=== PATIENT | male | born 1950 | race African-American/Black ===

== ENCOUNTER 2018-07-21 19:54 | Inpatient (IN) ==
[2018-07-21] MEDS ORDERED: Morphine Inj 4 MG/ML Vial IV.PUSH ONE (20:05)
[2018-07-21] MEDS ORDERED: Sod Chloride 0.9% Inj 1,000 ML IV.SIG ONE (20:05)
[2018-07-21 20:46] LABS: Baso % (Auto) 0.5 % (0.0-2.0); Eos # (Auto) 0.1 th/mm3 (0.0-0.4); Eos % (Auto) 1.9 % (0.0-4.0); Hematocrit 43.9 % (39.0-51.0); Hemoglobin 14.6 gm/dL (13.0-17.0); Lymph # (Auto) 1.3 th/mm3 (1.0-4.8); Lymph % (Auto) 21.2 % (9.0-44.0); Mean Corpuscular HGB Conc 33.1 % (32.0-36.0); Mean Corpuscular Hemoglobin 27.9 pg (27.0-34.0); Mean Corpuscular Volume 84.2 fL (80.0-100.0); Mean Platelet Volume 8.2 fL (7.0-11.0); Mono # (Auto) 0.6 th/mm3 (0.0-0.9); Mono % (Auto) 9.6 % (0.0-8.0); Neut # (Auto) 4.2 th/mm3 (1.8-7.7); Neut % (Auto) 66.8 % (16.0-70.0); Platelet Count 371 th/mm3 (150-450); Red Blood Count 5.22 mil/mm3 (4.50-5.90); Red Cell Distribution Width 16.9 % (11.6-17.2); White Blood Count 6.2 th/mm3 (4.0-11.0)
[2018-07-21 21:04] LABS: Activated Partial Thrombo Time 27.1 sec (24.3-30.1); Prothrombin Time 10.2 sec (9.8-11.6)
[2018-07-21 21:15] LABS: Alanine Aminotransferase 19 U/L (12-78); Albumin 4.3 g/dL (3.4-5.0); Anion Gap 15 meq/L (5-15); Aspartate Aminotransferase 16 U/L (15-37); Blood Urea Nitrogen 63 mg/dL (7-18); Calcium 9.2 mg/dL (8.5-10.1); Carbon Dioxide 17.6 meq/L (21.0-32.0); Chloride 107 meq/L (98-107); Glomerular Filtration Rate 7 mL/min (>89); Glucose,Random 87 mg/dL (74-106); Lipase 111 U/L (73-393); Potassium 4.8 meq/L (3.5-5.1); Sodium 140 meq/L (136-145)
[2018-07-21 21:19] LABS: Alkaline Phosphatase 80 U/L (45-117); Total Protein 8.9 g/dL (6.4-8.2); Troponin I 0.03 ng/mL (0.02-0.05)
--- NOTE | 2018-07-21 21:53 | CT ---
EXAM DATE: 07/21/2018 9:42 PM EDT AGE/SEX: 68 years / Male INDICATIONS: Abdomen and back pain past 3 weeks. CLINICAL DATA: This is the patient's initial encounter. Patient reports that signs and symptoms have been present for 3 weeks and indicates a pain score of 5/10. MEDICAL/SURGICAL HISTORY: Hypertension. Gastroesophageal reflux disease. Renal calculi. None. RADIATION DOSE: 9.01 CTDI (mGy) COMPARISON: [facility] [place]/O CONTRAST, 05/15/2014. . TECHNIQUE: Multiple contiguous axial images were obtained through the abdomen. Images were obtained using multiple row detector helical technique. Using automated exposure control and adjustment of the mA and/or kV according to patient size, radiation dose was kept as low as reasonably achievable to o btain optimal diagnostic quality images. DICOM format image data is available electronically for rev iew and comparison. FINDINGS: Lower Lungs: The visualized lower lungs are clear. Liver: The liver has a homogeneous density without space-occupying lesion. There is no dilation of th e biliary tree. Spleen: Homogeneous density without enlargement. Pancreas: Unremarkable without mass or calcification. Kidneys: Normal in size and shape. No evidence of mass or hydronephrosis. Adrenal Glands: Unremarkable. Aorta: Diffuse aortic calcification. Diameter within normal limits. Bowel/Mesentery: No evidence of bowel dilatation. No free air or free fluid. Appendix not identified . Abdominal Wall: Intact. Retroperitoneum: No evidence of adenopathy in the retrocrural, para-aortic, or deep pelvic regions. Bladder: Contours are smooth. Reproductive Organs: No abnormal masses or calcifications seen. Inguinal: The inguinal region is unremarkable without evidence of adenopathy. Bony Structures: Prominent degenerative findings of the lumbar spine. CONCLUSION: No acute findings in the abdomen and pelvis. Electronically signed by: Danny Moreira MD 07/21/2018 9:52 PM EDT
--- NOTE | 2018-07-21 22:21 | ED ---
HPI General Chief complaint: Abdominal Pain Stated complaint: ABD Pain Time Seen by Provider: 07/21/18 20:05 Source: patient Mode of arrival: EMS Limitations: no limitations History of Present Illness HPI narrative: Patient is a 68-year-old male who comes in complaining of abdominal pain with nausea and vomiting. He says the pain is in the epigastric area. He says this is been going on for 3 weeks. He says he saw his doctor who ordered blood work and was concerned about his kidney function. He says that nothing has helped his pain. He has not been able to keep anything down and reports 25 pound weight loss. He denies fever chills. He denies chest pain or shortness of breath. Severity is mild to moderate. Related Data Home Medications Medication Instructions Recorded Confirmed amlodipine 10 mg PO DAILY 07/21/18 07/21/18 hydrocodone-acetaminophen [[place]] 1 tab PO Q4H PRN 07/21/18 07/21/18 Allergies Allergy/AdvReac Type Severity Reaction Status Date / Time penicillin G Allergy Severe SOB, RASH Verified 07/21/18 20:00 clindamycin Allergy Intermediate itching Verified 07/21/18 20:00 rash Review of Systems ROS: all other systems reviewed are negative Constitutional Denies chills and Denies fever(s) ENT Denies dizziness Cardiovascular Denies chest pain and Denies dyspnea Respiratory Denies cough Gastrointestinal Reports abdominal pain, Reports nausea and Reports vomiting Musculoskeletal Denies myalgias and Denies arthralgias Integumentary/Breasts Denies rash and Denies sores Neurologic Denies focal weakness and Denies numbness [facility] Medical History Medical History Arthritis (Acute) Chest pain (Acute) GERD (gastroesophageal reflux disease) (Acute) Hypertension (Acute) Kidney stones (Acute) Surgical History Surgical History H/O knee surgery (Acute) H/O shoulder surgery (Acute) Social History Social History Substance History: No History of Abuse Second Hand Smoke Exposure: Yes Smoking Status: Current some day smoker Tobacco Type: Cigarettes How Often Do You Have a Drink Containing Alcohol: 2 to 4 times a month Recent Travel in [facility] within the Last 8 Weeks: No Recent Out of Country Travel within the Last 8 Weeks: No Immunization History Tetanus Immunization: <5 Years Hx Influenza Vaccine This Season: Yes Exam Narrative Exam Narrative: GENERAL: Awake and alert, in no acute distress. SKIN: Focused skin assessment warm/dry. No wounds or signs of infection. HEAD: Atraumatic. Normocephalic. EYES: Pupils equal and round. No scleral icterus. ENT: Mucous membranes pink and moist. NECK: Trachea midline. No JVD. CARDIOVASCULAR: Regular rate and rhythm. No murmur appreciated. RESPIRATORY: No accessory muscle use. Clear to auscultation. Breath sounds equal bilaterally. GASTROINTESTINAL: Abdomen soft, nondistended. Diffuse tenderness, worse in the epigastric area. No rebound or guarding. MUSCULOSKELETAL: No obvious deformities. No clubbing. No cyanosis. No edema. NEUROLOGICAL: Awake and alert. No obvious cranial nerve deficits. Motor grossly within normal limits. Normal speech. PSYCHIATRIC: Appropriate mood and affect; insight and judgment normal. Course Initial Documented Vital Signs Temperature 98.0 F 07/21/18 20:01 Pulse Rate 90 07/21/18 20:01 Respiratory Rate 18 07/21/18 20:01 Blood Pressure 100/61 07/21/18 20:01 Pulse Oximetry 96 07/21/18 20:01 Last Documented Vital Signs Temperature 98.0 F 07/21/18 20:01 Pulse Rate 89 07/21/18 20:06 Respiratory Rate 20 07/21/18 20:40 Blood Pressure 102/62 07/21/18 20:06 Pulse Oximetry 98 07/21/18 20:06 Medical Decision Making [facility] Narrative Medical decision making narrative: Patient is a 68 year old male who comes in complaining of abdominal pain with nausea and vomiting. Exam shows tenderness to epigastric area. IV established, labs sent. Labs show Cr of 9.26. Patient given IVF, Zofran. CT abd/pelvis shows no acute abnormalities. Patient to be admitted for ARF. Medical Screen Exam Complete: Yes Emergency Medical Condition: Yes Differential Diagnosis Differential Diagnosis: Pancreatitis vs GERD vs dehydration Medical Records Medical records reviewed: Yes I reviewed the patient's medical records. Lab Data Lab results reviewed: Yes I reviewed the patient's lab results. Result diagrams: 07/21/18 20:15 07/21/18 20:15 Lab Results 07/21/18 07/21/18 07/21/18 Range/Units 20:15 20:15 20:15 WBC 6.2 (4.0-11.0) th/mm3 RBC 5.22 (4.50-5.90) mil/mm3 Hgb 14.6 (13.0-17.0) gm/dL Hct 43.9 (39.0-51.0) % MCV 84.2 (80.0-100.0) fL MCH 27.9 (27.0-34.0) pg MCHC 33.1 (32.0-36.0) % RDW 16.9 (11.6-17.2) % Plt Count 371 (150-450) th/mm3 MPV 8.2 (7.0-11.0) fL Neut % (Auto) 66.8 (16.0-70.0) % Lymph % (Auto) 21.2 (9.0-44.0) % Graham % (Auto) 9.6 H (0.0-8.0) % Eos % (Auto) 1.9 (0.0-4.0) % Baso % (Auto) 0.5 (0.0-2.0) % Neut # (Auto) 4.2 (1.8-7.7) th/mm3 Lymph # (Auto) 1.3 (1.0-4.8) th/mm3 Graham # (Auto) 0.6 (0.0-0.9) th/mm3 Eos # (Auto) 0.1 (0.0-0.4) th/mm3 Baso # (Auto) 0.0 (0.0-0.2) th/mm3 WBC Differential . Differential Comment Auto diff final PT 10.2 (9.8-11.6) sec INR 1.0 Ratio APTT 27.1 (24.3-30.1) sec Sodium 140 (136-145) meq/L Potassium 4.8 (3.5-5.1) meq/L Chloride 107 (98-107) meq/L Carbon Dioxide 17.6 L (21.0-32.0) meq/L Anion Gap 15 (5-15) meq/L BUN 63 H (7-18) mg/dL Creatinine 9.26 H (0.60-1.30) mg/dL Estimated GFR 7 L (>89) mL/min Random Glucose 87 (74-106) mg/dL Calcium 9.2 (8.5-10.1) mg/dL Total Bilirubin 0.4 (0.2-1.0) mg/dL AST 16 (15-37) U/L ALT 19 (12-78) U/L Alkaline Phosphatase 80 (45-117) U/L Troponin I 0.03 (0.02-0.05) ng/mL Total Protein 8.9 H (6.4-8.2) g/dL Albumin 4.3 (3.4-5.0) g/dL Lipase 111 (73-393) U/L Imaging Data Radiologist's impression: Abdomen/Pelvis CT 07/21/18 21:30 CONCLUSION: No acute findings in the abdomen and pelvis. ECG shows NSR at 86, no ST elevation or depression, normal intervals. Discharge Plan Discharge Disposition Patient Disposition: 30 Still Patient Discharge Condition Condition: Stable Discharge Details Diagnosis: Acute renal failure, Vomiting Physicians Team ED Provider: Lyly Marin Primary Care Provider: Primary Care Cyn Lombardi Attending Provider: Tomeka Hand Other Providers: Violetta Wan Discharge Interventions Interventions: Vital Signs Last Done: 07/21/18 20:06 Status ED Status: Admitted Patient
[2018-07-21] MEDS ORDERED: Bisacodyl 10 MG Supp RECTAL PRN (22:25)
[2018-07-21] MEDS ORDERED: Acetaminophen 325 MG Tablet PO PRN (22:25)
--- NOTE | 2018-07-21 22:28 | P.HPIM ---
History of Present Illness Primary Care Physician: No Primary Care Physician History of Present Illness: This is a 68-year-old male with a PMH of HTN, GERD and Arthritis who presents to ER with complaints of abdominal pain, nausea, vomiting and diarrhea x3 wks. Denies fever or chills, no sick contacts, no recent travel. States symptoms have been ongoing x3wks, unable to take PO due to nausea/vomiting. +weight loss of approx 20lbs. No previous h/o similar symptoms. Reports drinking " lots of water", however minimal urine output. On arrival, BP 100/61, HR 90, O2 sat 96% on RA, Afebrile. CBC unremarkable. INR 1.0. Creatinine 9.26, previously 1.47 on 06/04/2014. Troponin 0.03. CT Abdomen/Pelvis with no acute findings. Pt denies previous h/o kidney disease - Diagnosis (1) SANGITA (acute kidney injury) (2) Abdominal pain (3) Nausea, vomiting and diarrhea Review of Systems PAST FAMILY HISTORY: Reviewed. No h/o DM or CAD All other systems reviewed negative except as stated in HPI PMFSH - History History Provided By: Patient - Medical History Medical History: Medical History (Last Reviewed 07/21/18 @ 22:53 by Lyly Marin MD) Arthritis Chest pain GERD (gastroesophageal reflux disease) Hypertension Kidney stones - Surgical History Surgical History: Surgical History (Last Reviewed 07/21/18 @ 22:53 by Lyly Marin MD) H/O knee surgery H/O shoulder surgery - Tobacco History Second Hand Smoke Exposure: Yes Tobacco Use In Past 30 Days: Yes Smoking Status: Current some day smoker Tobacco Type: Cigarettes - Alcohol History How Often Do You Have a Drink Containing Alcohol: 2 to 4 times a month - Substance Use History Substance History: No History of Abuse - Travel History Recent Travel in the [place] Within the Last 8 Weeks: No Recent Travel Out of the Country Within the Last 8 Weeks: No - Immunization History Tetanus Immunization: <5 Years Hx Influenza Vaccine This Season: Yes Medications and Allergies Active Medications: Active Medications Acetaminophen (Tylenol) 650 mg PO Q4H PRN PRN Reason: Temp > 100.4 Al Hydroxide/Mg Hydroxide (Milk Of Magnesia Liq) 30 ml PO Q12H PRN PRN Reason: Mild Constipation Bisacodyl (Dulcolax Supp) 10 mg RECTAL DAILY PRN PRN Reason: SEVERE CONSITIPATION Sodium Chloride (Ns Inj) 1,000 mls @ 100 mls/hr IV.CONT .Q10H LEO Lactulose (Lactulose Liq) 30 ml PO DAILY PRN PRN Reason: SEVERE CONSITIPATION Morphine Sulfate (Morphine Inj) 2 mg IV.PUSH Q4H PRN PRN Reason: PAIN 6-10 Ondansetron HCl (Zofran Inj) 4 mg IV.PUSH Q6H PRN PRN Reason: NAUSEA OR VOMITING Senna/Docusate Sodium (Yumi-Colace) 1 tab PO BID LEO Sennosides (Senokot) 17.2 mg PO Q12H PRN PRN Reason: Moderate Constipation Sodium Chloride (Ns Flush) 2 ml IV.FLUSH PRN PRN PRN Reason: FLUSH AFTER USING IV ACCESS Allergies Allergy/AdvReac Type Severity Reaction Status Date / Time penicillin G Allergy Severe SOB, RASH Verified 07/21/18 20:00 clindamycin Allergy Intermediate itching Verified 07/21/18 20:00 rash Home Medications Medication Instructions Recorded Confirmed Type amlodipine 10 mg PO DAILY 07/21/18 07/21/18 History hydrocodone-acetaminophen [[place]] 1 tab PO Q4H PRN 07/21/18 07/21/18 History Exam Vital signs: Vital Signs 07/21/18 20:01 07/21/18 20:06 07/21/18 20:40 Temperature 98.0 F Pulse Rate 90 89 Respiratory Rate 18 20 20 Blood Pressure 100/61 102/62 Pulse Oximetry 96 98 Intake & Output 07/21/18 07/21/18 07/22/18 06:59 18:59 06:59 Intake Total 1000 / 1000 Balance 1000 / 1000 Weight 54.431 kg Intake: IV 1000 / 1000 NS Inj 1,000 ML @ Wide Open IV. 1000 / 1000 SIG BOLUS ONE Rx#:[id number] Narrative: PE: GENERAL: Middle-aged thin, frail black male in no acute distress. SKIN: Focused skin assessment warm and dry. HEENT: PERRLA, EOMI. No scleral icterus or conjunctival pallor. No lid lag or facial droop. CARDIOVASCULAR: Regular rate and rhythm. No obvious murmurs to auscultation. No chest tenderness to palpation. RESPIRATORY: No obvious rhonchi or wheezing. Clear to auscultation. Breath sounds equal bilaterally. GASTROINTESTINAL: Abdomen soft, non-tender, nondistended. BS normal. MUSCULOSKELETAL: Extremities without clubbing, cyanosis, or edema. No obvious deformities. NEUROLOGICAL: Awake, alert and oriented x4. No focal neurologic deficits. Moving both upper and lower extremities spontaneously. PSYCHIATRIC: Appropriate mood and affect. Insight and judgment normal. Results - Labs CBC & Chem 7: 07/21/18 20:15 07/21/18 20:15 Labs: Short CBC 07/21/18 Range/Units 20:15 WBC 6.2 (4.0-11.0) th/mm3 Hgb 14.6 (13.0-17.0) gm/dL Hct 43.9 (39.0-51.0) % Plt Count 371 (150-450) th/mm3 BMP 07/21/18 20:15 Sodium 140 Potassium 4.8 Chloride 107 Carbon Dioxide 17.6 L BUN 63 H Creatinine 9.26 H Calcium 9.2 Cardiac Enzymes 07/21/18 Range/Units 20:15 Troponin I 0.03 (0.02-0.05) ng/mL Liver Function 07/21/18 Range/Units 20:15 Total Bilirubin 0.4 (0.2-1.0) mg/dL AST 16 (15-37) U/L ALT 19 (12-78) U/L Alkaline Phosphatase 80 (45-117) U/L Albumin 4.3 (3.4-5.0) g/dL - Imaging Impressions Abdomen/Pelvis CT 07/21/18 21:30 CONCLUSION: No acute findings in the abdomen and pelvis. Caprini VTE Risk Assessment Caprini VTE Risk Assessment: No/Low Risk (score <= 1) Caprini Risk Assessment Model: Point Value = 1 Point Value = 2 Point Value = 3 Point Value = 5 Age 41-60 Minor surgery BMI > 25 kg/m2 Swollen legs Varicose veins or History of unexplained or recurrent spontaneous Oral contraceptives or hormone replacement Sepsis (< 1 month) Serious lung disease, including pneumonia (< 1 month) Abnormal pulmonary function Acute myocardial infarction Congestive heart failure (< 1 month) History of inflammatory bowel disease Medical patient at bed rest Age 61-74 Arthroscopic surgery Major open surgery (> 45 min) Laparoscopic surgery (> 45 min) Malignancy Confined to bed (> 72 hours) Immobilizing plaster cast Central venous access Age >= 75 History of VTE Family history of VTE Factor V Leiden Prothrombin [id number] Lupus anticoagulant Anticardiolipin antibodies Elevated serum homocysteine Heparin-induced thrombocytopenia Other congenital or acquired thrombophilia Stroke (< 1 month) Elective arthroplasty Hip, pelvis, or leg fracture Acute spinal cord injury (< 1 month) Prophylaxis Regimen: Total Risk Factor Score Risk Level Prophylaxis Regimen 0-1 Low Early ambulation 2 Moderate Order ONE of the following: *Sequential Compression Device (SCD) *Heparin 5000 units SQ BID 3-4 Higher Order ONE of the following medications: *Heparin 5000 units SQ TID *Enoxaparin/Lovenox 40 mg SQ daily (WT < 150 kg, CrCl > 30 mL/min) *Enoxaparin/Lovenox 30 mg SQ daily (WT < 150 kg, CrCl > 10-29 mL/min) *Enoxaparin/Lovenox 30 mg SQ BID (WT < 150 kg, CrCl > 30 mL/min) AND/OR *Sequential Compression Device (SCD) 5 or more Highest Order ONE of the following medications: *Heparin 5000 units SQ TID (Preferred with Epidurals) *Enoxaparin/Lovenox 40 mg SQ daily (WT < 150 kg, CrCl > 30 mL/min) *Enoxaparin/Lovenox 30 mg SQ daily (WT < 150 kg, CrCl > 10-29 mL/min) *Enoxaparin/Lovenox 30 mg SQ BID (WT < 150 kg, CrCl > 30 mL/min) AND *Sequential Compression Device (SCD) Assessment and Plan - Assessment (1) SANGITA (acute kidney injury) Code(s): N17.9 - Acute kidney failure, unspecified Status: Acute (2) Abdominal pain Code(s): R10.9 - Unspecified abdominal pain Status: Acute (3) Nausea, vomiting and diarrhea Code(s): R11.2 - Nausea with vomiting, unspecified; R19.7 - Diarrhea, unspecified Status: Acute - Plan A/P: 1. SANGITA: Creatinine 9.26, previously 1.47 on 06/04/14, likely due to nausea/ vomiting/diarrhea and decreased PO intake, K+ normal. IVF for hydration, monitor I/O. Check U/a. Check Renal US for further eval, check CPK. Consult Nephrology for further eval/intervention. No NSAIDs. 2. Abdominal Pain: Unclear etiology, reports ongoing nausea/vomiting/diarrhea w/ associated weight loss, CT Abd/Pelvis w/ no acute findings, images reviewed, LFTs normal. Analgesics/antiemetics as needed. 3. Intractable N/V/D: x3 wks, unlikely gastroenteritis, CT Abd/Pelvis w/ no acute findings, check stool studies/C Diff, analgesics/antiemetics as needed, requesting food, diet as tolerated. 4. DVT Prophylaxis: SCD/Teds 5. Social work for d/c planning as needed 6. Case discussed w/ ER physician at length, labs/records/imaging reviewed by me.
--- NOTE | 2018-07-21 22:40 | ECG ---
Date Performed: 07/21/2018 Time Performed: 20:17:59 PTAGE: 68 years EKG: Sinus rhythm POSSIBLE LEFT ATRIAL ENLARGEMENT BORDERLINE ECG NO PREVIOUS TRACING DOCTOR: Khurram Belle Interpretating Date/Time 07/21/2018 22:32:26
[2018-07-21 23:12] LABS: CKMB Percent 0.5 % (0.0-4.0); Creatine Kinase MB 1.7 ng/mL (0.5-3.6)
[2018-07-22] MEDS: Sod Chloride 0.9% Inj 1,000 ML IV.CONT SCH ×3 (01:26→18:05)
[2018-07-22] MEDS: Morphine Sulfate Inj 2 MG/ML Vial IV.PUSH PRN ×6 (01:32→22:49)
[2018-07-22 05:54] LABS: Baso % (Auto) 0.7 % (0.0-2.0); Eos # (Auto) 0.2 th/mm3 (0.0-0.4); Eos % (Auto) 2.5 % (0.0-4.0); Hematocrit 38.9 % (39.0-51.0); Hemoglobin 12.6 gm/dL (13.0-17.0); Lymph # (Auto) 1.8 th/mm3 (1.0-4.8); Lymph % (Auto) 25.2 % (9.0-44.0); Mean Corpuscular HGB Conc 32.5 % (32.0-36.0); Mean Corpuscular Hemoglobin 27.8 pg (27.0-34.0); Mean Corpuscular Volume 85.7 fL (80.0-100.0); Mean Platelet Volume 8.5 fL (7.0-11.0); Mono # (Auto) 0.6 th/mm3 (0.0-0.9); Mono % (Auto) 8.5 % (0.0-8.0); Neut # (Auto) 4.6 th/mm3 (1.8-7.7); Neut % (Auto) 63.1 % (16.0-70.0); Platelet Count 294 th/mm3 (150-450); Red Blood Count 4.54 mil/mm3 (4.50-5.90); Red Cell Distribution Width 16.6 % (11.6-17.2); White Blood Count 7.3 th/mm3 (4.0-11.0)
[2018-07-22 06:28] LABS: Anion Gap 11 meq/L (5-15)
[2018-07-22 06:37] LABS: Alanine Aminotransferase 15 U/L (12-78); Albumin 3.3 g/dL (3.4-5.0); Alkaline Phosphatase 63 U/L (45-117); Aspartate Aminotransferase 17 U/L (15-37); Blood Urea Nitrogen 65 mg/dL (7-18); Calcium 7.7 mg/dL (8.5-10.1); Carbon Dioxide 20.8 meq/L (21.0-32.0); Chloride 112 meq/L (98-107); Glomerular Filtration Rate 8 mL/min (>89); Glucose,Random 75 mg/dL (74-106); Potassium 4.9 meq/L (3.5-5.1); Sodium 144 meq/L (136-145)
--- NOTE | 2018-07-22 07:58 | US ---
EXAM DATE: 07/22/2018 7:50 AM EDT AGE/SEX: 68 years / Male INDICATIONS: Increased BUN/Creatinine. CLINICAL DATA: This is the patient's initial encounter. Patient reports that signs and symptoms have been present for 1 day and indicates a pain score of 2/10. MEDICAL/SURGICAL HISTORY: Gastroesophageal reflux disease. Hypertension. Arthritis. Chest pain . Kidney stones. . Knee surgery. Shoulder surgery. [place] [facility] [place]21/2018. . MEASUREMENTS: Right Kidney:__10.1 x 4.7 x 3.7 cm Left Kidney:__10.3 x 4.3 x 5.1 cm FINDINGS: Right Kidney: Normal echotexture and cortical thickness. No mass or hydronephrosis. Left Kidney: Normal echotexture and cortical thickness. No mass or hydronephrosis. Bladder: Within normal limits given the degree of distension. Other: Prostate is heterogeneous in appearance measures 4. 4 x 4 by 2.9 cm. CONCLUSION: 1. Heterogeneous prostate otherwise unremarkable. Electronically signed by: Franklin Anders MD 07/22/2018 7:56 AM EDT
[2018-07-22] MEDS: Senna/Docusate Sodium 8.6/50 MG Tablet PO SCH ×2 (09:17→21:08)
[2018-07-22 10:13] LABS: Bacteria,Urine Occasional /hpf; Bilirubin,Urine Negative (Negative); Clarity,Urine Hazy (Clear); Color,Urine Yellow (Yellw/Straw); Glucose,Urine (UA) Negative (Negative); Hyaline Casts,Urine 7 /lpf (0-3); Leukocyte Esterase,Urine Negative (Negative); Mucus,Urine Few /lpf (Occasional); Nitrite,Urine Negative (Negative); Squamous Epithelial Cell,Urine <1 /hpf (0-5)
[2018-07-22 10:27] LABS: Amphetamine Screen,Urine Neg (Neg); Barbiturate Screen,Urine Neg (Neg); Cannabinoid Screen,Urine Pos (Neg); Cocaine Screen,Urine Pos (Neg)
[2018-07-22 10:30] LABS: Opiate Screen,Urine Pos (Neg)
--- NOTE | 2018-07-22 10:36 | P.PN ---
Subjective Interval history: The patient is in bed he appears to not acute distress at this time. Says he has no appetite. Feels tired. He however says he will not consider hemodialysis. Denies any back pain or abdominal pain. No nausea vomiting no diarrhea constipation. No fever or chills. Physical Exam Vital signs: Vital Signs 07/21/18 20:01 07/21/18 20:06 07/21/18 20:40 Temperature 98.0 F Pulse Rate 90 89 Respiratory Rate 18 20 20 Blood Pressure 100/61 102/62 Pulse Oximetry 96 98 07/21/18 23:19 07/22/18 01:22 07/22/18 08:00 Temperature 97.6 F 98.4 F Pulse Rate 75 65 67 Respiratory Rate 20 18 18 Blood Pressure 119/66 123/61 93/54 L Pulse Oximetry 98 99 97 Intake & Output 07/21/18 07/22/18 07/22/18 18:59 06:59 18:59 Intake Total 1530 / 1530 1000 / 1000 Output Total 160 / 160 Balance 1530 / 1530 840 / 840 Weight 60.4 kg Intake: IV 1000 / 1000 1000 / 1000 NS Inj 1,000 ML @ 100 mls/hr IV 1000 / 1000 .CONT .Q10H [facility] Rx#:[id number] NS Inj 1,000 ML @ Wide Open IV. 1000 / 1000 SIG BOLUS ONE Rx#:[id number] Oral 530 / 530 Output: Urine 160 / 160 Other: Date of Last Bowel Movement 07/21/18 07/21/18 Weight On Admission 60.4 kg Narrative: GENERAL: Middle-aged thin, frail black male in no acute distress. CARDIOVASCULAR: Regular rate and rhythm. No obvious murmurs to auscultation. No chest tenderness to palpation. RESPIRATORY: No obvious rhonchi or wheezing. Clear to auscultation. Breath sounds equal bilaterally. GASTROINTESTINAL: Abdomen soft, non-tender, nondistended. BS normal. MUSCULOSKELETAL: Extremities without clubbing, cyanosis, or edema. No obvious deformities. NEUROLOGICAL: Awake, alert and oriented x4. No focal neurologic deficits. Moving both upper and lower extremities spontaneously. PSYCHIATRIC: Appropriate mood and affect. Insight and judgment normal. Results - Labs CBC & Chem 7: 07/22/18 04:52 07/22/18 04:52 Laboratory Results - last 24 hr 09/07/21/18 07/21/18 20:15 20:15 20:15 WBC 6.2 RBC 5.22 Hgb 14.6 Hct 43.9 MCV 84.2 MCH 27.9 MCHC 33.1 RDW 16.9 Plt Count 371 MPV 8.2 Neut % (Auto) 66.8 Lymph % (Auto) 21.2 Hardy % (Auto) 9.6 H Eos % (Auto) 1.9 Baso % (Auto) 0.5 Neut # (Auto) 4.2 Lymph # (Auto) 1.3 Hardy # (Auto) 0.6 Eos # (Auto) 0.1 Baso # (Auto) 0.0 WBC Differential . Differential Comment Auto diff final PT 10.2 INR 1.0 APTT 27.1 Sodium 140 Potassium 4.8 Chloride 107 Carbon Dioxide 17.6 L Anion Gap 15 BUN 63 H Creatinine 9.26 H Estimated GFR 7 L Random Glucose 87 Calcium 9.2 Total Bilirubin 0.4 AST 16 ALT 19 Alkaline Phosphatase 80 Total Creatine Kinase CK-MB (CK-2) CK-MB (CK-2) % Troponin I 0.03 Total Protein 8.9 H Albumin 4.3 Lipase 111 Urine Color Urine Clarity Urine pH Ur Specific [place] Urine Protein Urine Glucose (UA) Urine Ketones Urine Occult Blood Urine Nitrate Urine Bilirubin Urine Urobilinogen Ur Leukocyte Esterase Urine RBC Urine WBC Ur Squamous Epith Cells Urine Bacteria Hyaline Casts Urine Mucus Micro UA Comment Ur Microscopic Review Urine Culture Comments Urine Opiates Screen Ur Barbiturates Screen Ur Amphetamines Screen U Benzodiazepines Scrn Urine Cocaine Screen U Cannabinoids Screen 07/21/18 07/22/18 07/22/18 20:15 04:52 04:52 WBC 7.3 RBC 4.54 Hgb 12.6 L D Hct 38.9 L MCV 85.7 MCH 27.8 MCHC 32.5 RDW 16.6 Plt Count 294 MPV 8.5 Neut % (Auto) 63.1 Lymph % (Auto) 25.2 Hardy % (Auto) 8.5 H Eos % (Auto) 2.5 Baso % (Auto) 0.7 Neut # (Auto) 4.6 Lymph # (Auto) 1.8 Hardy # (Auto) 0.6 Eos # (Auto) 0.2 Baso # (Auto) 0.0 WBC Differential . Differential Comment Auto diff final PT INR APTT Sodium 144 Potassium 4.9 Chloride 112 H Carbon Dioxide 20.8 L Anion Gap 11 BUN 65 H Creatinine 8.53 H Estimated GFR 8 L Random Glucose 75 Calcium 7.7 L D Total Bilirubin 0.3 AST 17 ALT 15 Alkaline Phosphatase 63 Total Creatine Kinase 317 H CK-MB (CK-2) 1.7 CK-MB (CK-2) % 0.5 Troponin I Total Protein 7.0 D Albumin 3.3 L D Lipase Urine Color Urine Clarity Urine pH Ur Specific [place] Urine Protein Urine Glucose (UA) Urine Ketones Urine Occult Blood Urine Nitrate Urine Bilirubin Urine Urobilinogen Ur Leukocyte Esterase Urine RBC Urine WBC Ur Squamous Epith Cells Urine Bacteria Hyaline Casts Urine Mucus Micro UA Comment Ur Microscopic Review Urine Culture Comments Urine Opiates Screen Ur Barbiturates Screen Ur Amphetamines Screen U Benzodiazepines Scrn Urine Cocaine Screen U Cannabinoids Screen 07/22/18 07/22/18 09:40 09:40 WBC RBC Hgb Hct MCV MCH MCHC RDW Plt Count MPV Neut % (Auto) Lymph % (Auto) Hardy % (Auto) Eos % (Auto) Baso % (Auto) Neut # (Auto) Lymph # (Auto) Hardy # (Auto) Eos # (Auto) Baso # (Auto) WBC Differential Differential Comment PT INR APTT Sodium Potassium Chloride Carbon Dioxide Anion Gap BUN Creatinine Estimated GFR Random Glucose Calcium Total Bilirubin AST ALT Alkaline Phosphatase Total Creatine Kinase CK-MB (CK-2) CK-MB (CK-2) % Troponin I Total Protein Albumin Lipase Urine Color Yellow Urine Clarity Hazy H Urine pH 5.0 Ur Specific [place] 1.020 Urine Protein 100 H Urine Glucose (UA) Negative Urine Ketones Negative Urine Occult Blood Small H Urine Nitrate Negative Urine Bilirubin Negative Urine Urobilinogen 2.0 H Ur Leukocyte Esterase Negative Urine RBC 1 Urine WBC 4 Ur Squamous Epith Cells <1 Urine Bacteria Occasional H Hyaline Casts 7 Urine Mucus Few H Micro UA Comment Culture not ind Ur Microscopic Review Not Reportable Urine Culture Comments Culture not ind Urine Opiates Screen Pos H Ur Barbiturates Screen Neg Ur Amphetamines Screen Neg U Benzodiazepines Scrn Neg Urine Cocaine Screen Pos H U Cannabinoids Screen Pos H - Imaging Impressions Abdomen/Pelvis CT 07/21/18 21:30 CONCLUSION: No acute findings in the abdomen and pelvis. Abdomen/Bladder Ultrasound 07/22/18 00:00 CONCLUSION: 1. Heterogeneous prostate otherwise unremarkable. Assessment and Plan - Assessment (1) SANGITA (acute kidney injury) Code(s): N17.9 - Acute kidney failure, unspecified Status: Acute (2) Abdominal pain Code(s): R10.9 - Unspecified abdominal pain Status: Acute (3) Nausea, vomiting and diarrhea Code(s): R11.2 - Nausea with vomiting, unspecified; R19.7 - Diarrhea, unspecified Status: Acute - Plan SANGITA: Creatinine 9.26 on admission, previously 1.47 on 06/04/14, likely due to nausea/vomiting/diarrhea and decreased PO intake, K+ normal. IVF for hydration , monitor I/O. Check U/a no signs of infection. Normal renal US, normal CPK. Consult Nephrology for further eval/intervention. No NSAIDs. Abdominal Pain: Unclear etiology, reports ongoing nausea/vomiting/diarrhea with associated weight loss, CT Abd/Pelvis with no acute findings, images reviewed, LFTs normal. Analgesics/antiemetics as needed. Intractable N/V/D: x3 wks, unlikely gastroenteritis, CT Abd/Pelvis w/ no acute findings, check stool studies/C Diff, analgesics/antiemetics as needed, requesting food, diet as tolerated. DVT Prophylaxis: SCD/Teds CM consulted for DC plan
--- NOTE | 2018-07-22 15:07 | MB ---
cc: Violetta Wan MD DATE: 07/22/2018 REASON FOR CONSULTATION: High BUN and creatinine, for evaluation. HISTORY OF PRESENT ILLNESS: This is a 68-year-old male with a past medical history of hypertension, gastroesophageal reflux disease, possible chronic kidney disease, history of arthritis, kidney stone, who came to the hospital complaining of nausea, vomiting and diarrhea going on for 3 weeks. I was called to see the patient because of very high BUN and creatinine. This gentleman was found to have a BUN of 63 and creatinine of 9.2 on admission. This was yesterday evening. This morning, the BUN is also almost same at 65 and the creatinine is 8.5. The patient denies any known history of renal disease. Looking back, it seems like he had creatinines in the range of 1.1 to 1.4 in 05/2014. We do not have any readings after that. The patient has had this nausea and vomiting going on for the last 3 weeks. He was not able to eat anything. Every time he ate, he had vomiting. He had mild epigastric pain. There was no history of fever. He was sweating more. There was no history of dysuria, hematuria, but he did notice that he had been passing less urine. The patient works at a car wash and according to him, was sweating more, and the day before he was admitted, he started sweating when he was feeling dizzy, weak and tired and he came to the hospital. The patient has been following with his primary physician and according to the patient, he saw him sometime this week and he was told to do some blood tests. After the blood tests, he was told to do some blood tests again on Monday, but he was not given any antibiotics and he was not taking any nonsteroidal anti-inflammatory drugs. PAST MEDICAL HISTORY: Hypertension, arthritis, possible chronic kidney disease, history of kidney stones, gastroesophageal reflux disease. PAST SURGICAL HISTORY: History of shoulder surgery, history of knee surgery. REVIEW OF SYSTEMS: The patient has generalized weakness and is feeling tired. He occasionally has dizziness. No shortness of breath. No chest pain. No palpitations. Denies any history of fever, but he has excessive sweating. He has this nausea and vomiting increased with eating food and associated with diarrhea going on for last 3 weeks. He was vomiting 2-3 times a day and the bowel movements the same, 2-3 times a day. There was no blood in the stool or vomitus. SOCIAL HISTORY: The patient is a chronic smoker. There is no history of alcoholism. FAMILY HISTORY: Noncontributory. ALLERGIES: HE IS ALLERGIC TO PENICILLIN AND CLINDAMYCIN. MEDICATIONS: Currently, he is on following medications: 1. Tylenol as needed. 2. Dulcolax as needed. 3. Lactulose p.r.n. 4. Morphine p.r.n. 5. Zofran p.r.n. 6. Yumi-Colace b.i.d. 7. Senokot p.r.n. 8. IV fluids with getting normal saline at 100 mL hour. PHYSICAL EXAMINATION: GENERAL: The patient is awake, alert. He is not in acute distress. VITAL SIGNS: His last blood pressure is 93/54, temperature 98.4, oxygen saturation 97% on room air. His blood pressure has been staying in the range of 100-120 systolic. HEENT: Pupils are mid constricted. Nonicteric sclerae. Conjunctivae are normal. NECK: Supple. JVD is not elevated. LUNGS: The patient has bilateral good air entry with occasional wheezing. HEART: S1, S2. Regular rhythm. ABDOMEN: Soft, lax. There is mild epigastric tenderness. There is no rebound or rigidity. Bowel sounds positive. EXTREMITIES: There is no pedal edema. INVESTIGATIONS: WBC count 7.3, hemoglobin 12.6, platelet count 294. Sodium 144, potassium 4.9, chloride 112, bicarbonate 20.8, BUN 65, creatinine 8.5, calcium 7.7, total bilirubin 0.3. AST 17, ALT 15, total protein 7.0 with an albumin of 3.3. Urinalysis is showing protein of 100. Urine toxicology was positive for opiates, cocaine and cannabinoids. IMAGING STUDIES: The patient had a CT scan of the abdomen and pelvis done without IV contrast which showed no acute findings. The kidneys are mentioned as normal size and shape with no mass or hydronephrosis. He also had an ultrasound of the abdomen and the bladder done which showed both kidneys were normal size at 10.1 cm and 10.3 cm. Slightly enlarged prostate. There was no hydronephrosis or mass. ASSESSMENT: 1. Acute kidney injury with a possibility of chronic kidney disease. 2. Vomiting and diarrhea with gastroenteritis. 3. History of hypertension and now hypotension. 4. Epigastric pain. PLAN: The patient has a very high BUN and creatinine. We do not have any recent labs except the ones which were done 4 years ago, and at that time, his creatinine was fluctuating from 1.1 to 1.4. He has minimal proteinuria. It is possible that he has underlying chronic kidney disease because of hypertensive or renovascular disease and now developed acute kidney injury because of the dehydration and the possibility of ATN because of the hypotension. At present, I agree with continuing the IV fluids. He is nonoliguric and passing urine. Watch for renal recovery. Avoid any nephrotoxins. I will send some serologies to look for other causes for his renal failure. Thank you for the consultation and I will follow the patient while he is in the hospital. MD BRITTANY Hall/bob , 11:25 AM , 11:39 AM
[2018-07-23] MEDS: Morphine Sulfate Inj 2 MG/ML Vial IV.PUSH PRN ×4 (03:56→19:53)
[2018-07-23] MEDS: Sod Chloride 0.9% Inj 1,000 ML IV.CONT SCH ×3 (03:57→14:23)
[2018-07-23 07:43] LABS: Calcium 8.5 mg/dL (8.5-10.1); Carbon Dioxide 24.7 meq/L (21.0-32.0); Phosphorus 3.8 mg/dL (2.5-4.9)
[2018-07-23] MEDS: Senna/Docusate Sodium 8.6/50 MG Tablet PO SCH ×2 (08:34→20:05)
--- NOTE | 2018-07-23 10:20 | P.PNNP ---
Subjective Interval history: Denies any shortness of breath, chest pain, dysuria, or hematuria. Creatinine improving at 3.56 today. <Ivory Khanna - Last Filed: 07/23/18 14:24> Physical Exam Vital signs: Vital Signs 07/22/18 12:00 07/22/18 16:00 07/22/18 20:00 Temperature 97.1 F L 98.5 F 97.9 F Pulse Rate 70 60 66 Respiratory Rate 18 17 18 Blood Pressure 152/67 H 107/55 L 135/61 Pulse Oximetry 99 99 95 07/22/18 22:55 07/23/18 00:39 07/23/18 04:50 Temperature 98.4 F Pulse Rate 63 Respiratory Rate 7 L 18 20 Blood Pressure 116/58 L Pulse Oximetry 97 07/23/18 08:00 Temperature 98.5 F Pulse Rate 64 Respiratory Rate 14 Blood Pressure 112/64 Pulse Oximetry 98 Intake & Output 07/22/18 07/23/18 07/23/18 18:59 06:59 18:59 Intake Total 2900 / 2900 1480 / 1480 1000 / 1000 Output Total 385 / 385 700 / 700 Balance 2515 / 2515 780 / 780 1000 / 1000 Weight 60.4 kg Intake: IV 2000 / 1999 1000 / 1000 1000 / 1000 NS Inj 1,000 ML @ 100 mls/hr IV 2000 / 2000 1000 / 1000 1000 / 1000 .CONT .Q10H [facility] Rx#:[id number] Oral 900 / 900 480 / 480 Output: Urine 385 / 385 700 / 700 Other: Date of Last Bowel Movement 07/21/18 # Bowel Movements 0 Narrative: GENERAL: Alert and oriented SKIN: Warm and dry. HEAD: Normocephalic. EYES: No scleral icterus. No injection or drainage. NECK: Supple, trachea midline. No JVD or lymphadenopathy. CARDIOVASCULAR: Regular rate and rhythm without murmurs, gallops, or rubs. RESPIRATORY: Breath sounds equal bilaterally. No accessory muscle use. GASTROINTESTINAL: Abdomen soft, non-tender, nondistended. MUSCULOSKELETAL: No cyanosis, or edema. BACK: Nontender without obvious deformity. No CVA tenderness. <Ivory Khanna - Last Filed: 07/23/18 14:24> Vital signs: Vital Signs 07/22/18 20:00 07/22/18 22:55 07/23/18 00:39 Temperature 97.9 F 98.4 F Pulse Rate 66 63 Respiratory Rate 18 7 L 18 Blood Pressure 135/61 116/58 L Pulse Oximetry 95 97 07/23/18 04:50 07/23/18 08:00 07/23/18 12:00 Temperature 98.5 F 98.3 F Pulse Rate 64 71 Respiratory Rate 20 14 16 Blood Pressure 112/64 139/71 Pulse Oximetry 98 99 07/23/18 16:00 Temperature 98.1 F Pulse Rate 75 Respiratory Rate 16 Blood Pressure 147/67 H Pulse Oximetry 95 Intake & Output 07/22/18 07/23/18 07/23/18 18:59 06:59 18:59 Intake Total 2900 / 2900 1480 / 1480 1000 / 1000 Output Total 385 / 385 700 / 700 Balance 2515 / 2515 780 / 780 1000 / 1000 Weight 60.4 kg Intake: IV 2000 / 2000 1000 / 1000 1000 / 1000 NS Inj 1,000 ML @ 100 mls/hr IV 2000 / 2000 1000 / 1000 1000 / 1000 .CONT .Q10H [facility] Rx#:[id number] Oral 900 / 900 480 / 480 Output: Urine 385 / 385 700 / 700 Other: Date of Last Bowel Movement 07/21/18 07/21/18 # Bowel Movements 0 <Violetta Wan - Last Filed: 07/23/18 18:07> Assessment and Plan - Assessment (1) SANGITA (acute kidney injury) Code(s): N17.9 - Acute kidney failure, unspecified Status: Acute Plan: Acute kidney injury because of dehydration and the possibility of ATN because of hypotension. Most likely has chronic kidney disease because of hypertensive or renovascular disease only creatinine available was from 4 years ago at 1- 1.4 CT of abdomen and pelvis with no acute findings. The kidneys are mentioned as normal size and shape with no mass or hydronephrosis. He also had an ultrasound of the abdomen and the bladder done which showed both kidneys were normal size at 10.1 cm and 10.3 cm. Slightly enlarged prostate. There was no hydronephrosis or mass. Plan Avoid nephrotoxins including IV contrast, aminoglycosides, and NSAIDS Continue IVF's and PO fluids encouraged Continue to monitor strict I+O's. SPEP pending. Will monitor urinary output and Labs. <Ivory Khanna - Last Filed: 07/23/18 14:24> - Assessment (1) SANGITA (acute kidney injury) Code(s): N17.9 - Acute kidney failure, unspecified Status: Acute Plan: Patient seen and examined, agree with above. Patient has chronic kidney disease and develop SANGITA. Creatinine is improving. Continue IVF and started on fluids. <Violetta Wan - Last Filed: 07/23/18 18:07>
--- NOTE | 2018-07-23 10:27 | P.PN ---
Subjective Interval history: Patient with nausea and some epigastric pain. Did not vomit. No diarrhea or constipation. Creatinine improved no need for dialysis so far per nephrology. Patient denies any fever or chills. No cough. No chest pain or shortness of breath. Physical Exam Vital signs: Vital Signs 07/22/18 12:00 07/22/18 16:00 07/22/18 20:00 Temperature 97.1 F L 98.5 F 97.9 F Pulse Rate 70 60 66 Respiratory Rate 18 17 18 Blood Pressure 152/67 H 107/55 L 135/61 Pulse Oximetry 99 99 95 07/22/18 22:55 07/23/18 00:39 07/23/18 04:50 Temperature 98.4 F Pulse Rate 63 Respiratory Rate 7 L 18 20 Blood Pressure 116/58 L Pulse Oximetry 97 07/23/18 08:00 Temperature 98.5 F Pulse Rate 64 Respiratory Rate 14 Blood Pressure 112/64 Pulse Oximetry 98 Intake & Output 07/22/18 07/23/18 07/23/18 18:59 06:59 18:59 Intake Total 2900 / 2900 1480 / 1480 1000 / 1000 Output Total 385 / 385 700 / 700 Balance 2515 / 2515 780 / 780 1000 / 1000 Weight 60.4 kg Intake: IV 2000 / 2000 1000 / 1000 1000 / 1000 NS Inj 1,000 ML @ 100 mls/hr IV 2000 / 2000 1000 / 1000 1000 / 1000 .CONT .Q10H [facility] Rx#:[id number] Oral 900 / 900 480 / 480 Output: Urine 385 / 385 700 / 700 Other: Date of Last Bowel Movement 07/21/18 # Bowel Movements 0 Narrative: GENERAL: Middle-aged thin, frail AA male, in no acute distress. CARDIOVASCULAR: Regular rate and rhythm. No obvious murmurs to auscultation. No chest tenderness to palpation. RESPIRATORY: No obvious rhonchi or wheezing. Clear to auscultation. Breath sounds equal bilaterally. GASTROINTESTINAL: Abdomen soft, non-tender, nondistended. BS normal. MUSCULOSKELETAL: Extremities without clubbing, cyanosis, or edema. No obvious deformities. NEUROLOGICAL: Awake, alert and oriented x4. No focal neurologic deficits. Moving both upper and lower extremities spontaneously. PSYCHIATRIC: Appropriate mood and affect. Insight and judgment normal. Results - Labs CBC & Chem 7: 07/22/18 04:52 07/23/18 06:24 Laboratory Results - last 24 hr 07/22/18 07/23/18 09:40 06:24 Sodium 142 Potassium 5.0 Chloride 109 H Carbon Dioxide 24.7 Anion Gap 8 BUN 61 H Creatinine 3.56 H Estimated GFR 21 L Random Glucose 68 L Calcium 8.5 D Phosphorus 3.8 Total Protein (PEP) 7.1 Urine Opiates Screen Pos H Ur Barbiturates Screen Neg Ur Amphetamines Screen Neg U Benzodiazepines Scrn Neg Urine Cocaine Screen Pos H U Cannabinoids Screen Pos H Assessment and Plan - Assessment (1) SANGITA (acute kidney injury) Code(s): N17.9 - Acute kidney failure, unspecified Status: Acute (2) Abdominal pain Code(s): R10.9 - Unspecified abdominal pain Status: Acute (3) Nausea, vomiting and diarrhea Code(s): R11.2 - Nausea with vomiting, unspecified; R19.7 - Diarrhea, unspecified Status: Acute - Plan SANGITA: Creatinine 9.26 on admission, previously 1.47 on 06/04/14, likely due to nausea/vomiting/diarrhea and decreased PO intake, K+ normal. IVF for hydration , monitor I/O. Check U/a no signs of infection. Normal renal US, normal CPK. Consult Nephrology for further eval/intervention. No NSAIDs. Kidney function improving but not at baseline, no need for HD so far Abdominal Pain: Unclear etiology, reports ongoing nausea/vomiting/diarrhea with associated weight loss, CT Abd/Pelvis with no acute findings, images reviewed, LFTs normal. Analgesics/antiemetics as needed. Intractable N/V/D: x3 wks, unlikely gastroenteritis, CT Abd/Pelvis w/ no acute findings, check stool studies/C Diff, analgesics/antiemetics as needed, requesting food, diet as tolerated. DVT Prophylaxis: SCD/Teds GI PPx : famotidine CM consulted for DC plan
[2018-07-24] MEDS: Morphine Sulfate Inj 2 MG/ML Vial IV.PUSH PRN ×4 (00:54→19:54)
[2018-07-24] MEDS: Sod Chloride 0.9% Inj 1,000 ML IV.CONT SCH ×3 (00:58→19:55)
[2018-07-24 09:44] LABS: Calcium 8.4 mg/dL (8.5-10.1); Carbon Dioxide 26.3 meq/L (21.0-32.0); Potassium 4.9 meq/L (3.5-5.1)
[2018-07-24] MEDS: Senna/Docusate Sodium 8.6/50 MG Tablet PO SCH ×2 (10:29→20:00)
--- NOTE | 2018-07-24 11:33 | P.PN ---
Subjective Interval history: The patient still with abdominal pain he also says he had black stool. No active bleeding. No fever or chills. Some nausea no vomiting. Able to eat something. Physical Exam Vital signs: Vital Signs 07/23/18 12:00 07/23/18 16:00 07/23/18 20:00 Temperature 98.3 F 98.1 F 98.8 F Pulse Rate 71 75 63 Respiratory Rate 16 16 17 Blood Pressure 139/71 147/67 H 128/62 Pulse Oximetry 99 95 98 07/24/18 00:00 07/24/18 07:59 Temperature 98 F 98.5 F Pulse Rate 72 69 Respiratory Rate 17 16 Blood Pressure 129/58 L 143/65 H Pulse Oximetry 98 100 Intake & Output 07/23/18 07/24/18 07/24/18 18:59 06:59 18:59 Intake Total 3200 / 3200 712 / 712 Output Total 1200 / 1200 950 / 950 Balance 1999 / 1999 -238 / -238 Intake: IV 1000 / 1000 0 / 0 NS Inj 1,000 ML @ 100 mls/hr IV 1000 / 1000 0 / 0 .CONT .Q10H [facility] Rx#:[id number] Oral 2200 / 2200 712 / 712 Output: Urine 1200 / 1200 950 / 950 Other: Date of Last Bowel Movement 07/21/18 07/21/18 Narrative: GENERAL: Middle-aged thin, frail AA male, in no acute distress. CARDIOVASCULAR: Regular rate and rhythm. No obvious murmurs to auscultation. No chest tenderness to palpation. RESPIRATORY: No obvious rhonchi or wheezing. Clear to auscultation. Breath sounds equal bilaterally. GASTROINTESTINAL: Abdomen soft, non-tender, nondistended. BS normal. MUSCULOSKELETAL: Extremities without clubbing, cyanosis, or edema. No obvious deformities. NEUROLOGICAL: Awake, alert and oriented x4. No focal neurologic deficits. Moving both upper and lower extremities spontaneously. PSYCHIATRIC: Appropriate mood and affect. Insight and judgment normal. Results - Labs CBC & Chem 7: 07/22/18 04:52 07/24/18 08:52 Laboratory Results - last 24 hr 07/23/18 07/23/18 07/24/18 06:24 06:24 08:52 Sodium 138 Potassium 4.9 Chloride 105 Carbon Dioxide 26.3 Anion Gap 7 BUN 36 H Creatinine 1.55 H Estimated GFR 55 L Random Glucose 73 L Calcium 8.4 L PEP Pathologist Comment ZAID Screen Neg Assessment and Plan - Assessment (1) SANGITA (acute kidney injury) Code(s): N17.9 - Acute kidney failure, unspecified Status: Acute (2) Abdominal pain Code(s): R10.9 - Unspecified abdominal pain Status: Acute (3) Nausea, vomiting and diarrhea Code(s): R11.2 - Nausea with vomiting, unspecified; R19.7 - Diarrhea, unspecified Status: Acute - Plan SANGITA: Creatinine 9.26 on admission, previously 1.47 on 06/04/14, likely due to nausea/vomiting/diarrhea and decreased PO intake, K+ normal. IVF for hydration , monitor I/O. Check U/a no signs of infection. Normal renal US, normal CPK. Consult Nephrology for further eval/intervention. No NSAIDs. Kidney function improving but not at baseline, no need for HD so far Abdominal Pain: Unclear etiology, reports ongoing nausea/vomiting/diarrhea with associated weight loss, CT Abd/Pelvis with no acute findings, images reviewed, LFTs normal. Analgesics/antiemetics as needed. Started famotidine no improvement The patient also complains of having a black stool no fresh blood in it. Had a colonoscopy a long time ago. We will consult GI for further evaluation. Patient possible bleeding. Intractable N/V/D: x3 wks, unlikely gastroenteritis, CT Abd/Pelvis w/ no acute findings, check stool studies/C Diff, analgesics/antiemetics as needed, requesting food, diet as tolerated. DVT Prophylaxis: SCD/Teds GI PPx : famotidine CM consulted for DC plan
--- NOTE | 2018-07-24 15:47 | P.PNNP ---
Subjective Interval history: Reports increased abdominal pain. Creatinine improving at 1.55, non oliguric. <Ivory Khanna - Last Filed: 07/24/18 15:44> Physical Exam Vital signs: Vital Signs 07/23/18 16:00 07/23/18 20:00 07/24/18 00:00 Temperature 98.1 F 98.8 F 98 F Pulse Rate 75 63 72 Respiratory Rate 16 17 17 Blood Pressure 147/67 H 128/62 129/58 L Pulse Oximetry 95 98 98 07/24/18 07:59 07/24/18 11:54 Temperature 98.5 F 98.0 F Pulse Rate 69 69 Respiratory Rate 16 16 Blood Pressure 143/65 H 134/61 Pulse Oximetry 100 99 Intake & Output 07/23/18 07/24/18 07/24/18 18:59 06:59 18:59 Intake Total 3200 / 3200 712 / 712 Output Total 1200 / 1200 950 / 950 700 / 700 Balance 1999 / 1999 -238 / -238 -700 / -700 Intake: IV 1000 / 1000 0 / 0 NS Inj 1,000 ML @ 100 mls/hr IV 1000 / 1000 0 / 0 .CONT .Q10H [facility] Rx#:[id number] Oral 2200 / 2200 712 / 712 Output: Urine 1200 / 1200 950 / 950 700 / 700 Other: Date of Last Bowel Movement 07/21/18 07/21/18 Narrative: GENERAL: Alert and oriented SKIN: Warm and dry. HEAD: Normocephalic. EYES: No scleral icterus. No injection or drainage. NECK: Supple, trachea midline. No JVD or lymphadenopathy. CARDIOVASCULAR: Regular rate and rhythm without murmurs, gallops, or rubs. RESPIRATORY: Breath sounds equal bilaterally. No accessory muscle use. GASTROINTESTINAL: Abdomen soft, non-tender, nondistended. MUSCULOSKELETAL: No cyanosis, or edema. BACK: Nontender without obvious deformity. No CVA tenderness <Ivory Khanna - Last Filed: 07/24/18 15:44> Vital signs: Vital Signs 07/23/18 20:00 07/24/18 00:00 07/24/18 07:59 Temperature 98.8 F 98 F 98.5 F Pulse Rate 63 72 69 Respiratory Rate 17 17 16 Blood Pressure 128/62 129/58 L 143/65 H Pulse Oximetry 98 98 100 07/24/18 11:54 07/24/18 16:00 Temperature 98.0 F 98.3 F Pulse Rate 69 71 Respiratory Rate 16 16 Blood Pressure 134/61 134/63 Pulse Oximetry 99 99 Intake & Output 07/23/18 07/24/18 07/24/18 18:59 06:59 18:59 Intake Total 3200 / 3200 712 / 712 1400 / 1400 Output Total 1200 / 1200 950 / 950 1700 / 1700 Balance 1999 -238 / -238 -300 / -300 Intake: IV 1000 / 1000 0 / 0 NS Inj 1,000 ML @ 100 mls/hr IV 1000 / 1000 0 / 0 .CONT .Q10H [facility] Rx#:[id number] Oral 2200 / 2200 712 / 712 1400 / 1400 Output: Urine 1200 / 1200 950 / 950 1700 / 1700 Other: Date of Last Bowel Movement 07/21/18 07/21/18 <Violetta Wan - Last Filed: 07/24/18 18:23> Assessment and Plan - Assessment (1) SANGITA (acute kidney injury) Code(s): N17.9 - Acute kidney failure, unspecified Status: Acute Plan: Acute kidney injury because of dehydration and the possibility of ATN because of hypotension. Most likely has chronic kidney disease because of hypertensive or renovascular disease only creatinine available was from 4 years ago at 1- 1.4 CT of abdomen and pelvis with no acute findings. The kidneys are mentioned as normal size and shape with no mass or hydronephrosis. He also had an ultrasound of the abdomen and the bladder done which showed both kidneys were normal size at 10.1 cm and 10.3 cm. Slightly enlarged prostate. There was no hydronephrosis or mass. Plan Avoid nephrotoxins including IV contrast, aminoglycosides, and NSAIDS Creatinine improving at 1.56 today, will decrease IVF, can discontinue when taking oral well. Continue to monitor strict I+O's. SPEP normal Will monitor urinary output and Labs. <Ivory Khanna - Last Filed: 07/24/18 15:44> - Assessment (1) SANGITA (acute kidney injury) Code(s): N17.9 - Acute kidney failure, unspecified Status: Acute Plan: Patient seen and examined, agree with above. Creatinine continue to improve, IVF decreased. <Violetta Wan - Last Filed: 07/24/18 18:23>
[2018-07-25] MEDS: Sod Chloride 0.9% Inj 1,000 ML IV.CONT SCH ×4 (01:58→18:15)
[2018-07-25] MEDS: Morphine Sulfate Inj 2 MG/ML Vial IV.PUSH PRN ×5 (04:09→22:15)
[2018-07-25 05:13] LABS: Baso # (Auto) 0.1 th/mm3 (0.0-0.2); Eos # (Auto) 0.3 th/mm3 (0.0-0.4); Eos % (Auto) 4.5 % (0.0-4.0); Hemoglobin 11.1 gm/dL (13.0-17.0); Lymph # (Auto) 1.7 th/mm3 (1.0-4.8); Mean Corpuscular HGB Conc 32.6 % (32.0-36.0); Mean Corpuscular Hemoglobin 27.6 pg (27.0-34.0); Mean Corpuscular Volume 84.7 fL (80.0-100.0); Mean Platelet Volume 8.6 fL (7.0-11.0); Mono # (Auto) 0.7 th/mm3 (0.0-0.9); Mono % (Auto) 12.6 % (0.0-8.0); Neut # (Auto) 3.2 th/mm3 (1.8-7.7); Neut % (Auto) 53.9 % (16.0-70.0); Platelet Count 267 th/mm3 (150-450); Red Blood Count 4.02 mil/mm3 (4.50-5.90); Red Cell Distribution Width 16.1 % (11.6-17.2)
[2018-07-25 05:36] LABS: Calcium 8.6 mg/dL (8.5-10.1); Carbon Dioxide 25.1 meq/L (21.0-32.0); Potassium 4.9 meq/L (3.5-5.1)
[2018-07-25] MEDS: Senna/Docusate Sodium 8.6/50 MG Tablet PO SCH ×2 (08:13→20:20)
--- NOTE | 2018-07-25 09:22 | P.CONGI ---
History of Present Illness Consult date: 07/25/18 Requesting physician: Freda Dubon Consult reason: Melena and Abdominal Pain Chief complaint: ARF History of Present Illness: Mr. Adonay Moreno is a 68-year-old male patient with a history of hypertension GERD and arthritis. This patient presented to the emergency room on 07/21/2018 with complaints of nausea and vomiting with abdominal pain and diarrhea for 3 weeks. Patient denies fever but does endorse having intermittent chills during this time. He denies any recent travel outside of the [place] and denies any known contacts that are sick. Patient reports a 23 pound weight loss over the last 3 weeks. Upon examination patient points to epigastrium area and states that pain is constant, he rates it as a 10/10 and describes it as a nagging pain. He states that the pain is aggravated when he eats "chilli", and pain is somewhat alleviated when he drinks milk or Ensure. Patient states that this pain radiates to his back at times. He reports loose dark stools over the last 2 weeks with last bowel movement being 1 week ago. Last EGD with colonoscopy done in 2002 per patient where 1 polyp was found and he was informed that it was benign. Patient denies difficulty swallowing he denies pain with swallowing but does endorse intermittent periods of heartburn for which he drinks increased amounts of water. Patient denies EtOH use states he does smoke less than 1 pack per day. States he drinks 4-5 cans of soda each day. He endorses using ibuprofen 400-600 mg tablets 4 tabs daily for joint and muscle pain. Patient denies any known family history of gastrointestinal cancers or disorders. This practice has been consulted to evaluate patient's report of dark stools and abdominal pain. Today's lab results reviewed WBC 6.0 RBC 4.02 hemoglobin 11.1 hematocrit 34.0 INR 1.0. BUN and creatinine 29 and 1.48 greatly improved from admission highly likely due to dehydration. Plan for EGD discussed with patient he verbalizes understanding and agreement. N.p.o. status maintained. <Brianna Crowe - Last Filed: 07/25/18 09:33> Review of Systems Constitutional: Reports weight loss, Denies excessive sweating, Denies fatigue, Denies fever(s) Cardiovascular: Denies chest pain, Denies generalized swelling, Denies lightheadedness, Denies shortness of breath Respiratory: Denies cough, Denies shortness of breath Gastrointestinal: Reports abdominal pain, Reports black, tarry stools, Reports change in bowel habits, Reports change in stools, Reports nausea Comments: Patient reports nausea and vomiting and reports " mushy" dark stools x 2 weeks. No bm x 1 week Genitourinary: Denies blood in urine, Denies painful urination, Denies side pain Skin/Breast: Denies change in skin color Neurologic: Denies dizziness Allergic/Immunologic: Reports GI upset with certain foods Comments: abdominal pain increases after eating spicy foods and is alleviated by drinking milk based products <Brianna Crowe - Last Filed: 07/25/18 09:33> PMFSH - History History Provided By: Patient - Medical History Medical History: Medical History (Last Reviewed 07/21/18 @ 22:53 by Lyly Marin MD) Arthritis Chest pain GERD (gastroesophageal reflux disease) Hypertension Kidney stones - Surgical History Surgical History: Surgical History (Last Reviewed 07/21/18 @ 22:53 by Lyly Marin MD) H/O knee surgery H/O shoulder surgery - Tobacco History Second Hand Smoke Exposure: Yes Tobacco Use In Past 30 Days: Yes Smoking Status: Current every day smoker Tobacco Type: Cigarettes - Alcohol History How Often Do You Have a Drink Containing Alcohol: Never - Substance Use History Substance History: 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 - Travel History Recent Travel in the [place] Within the Last 8 Weeks: No Recent Travel Out of the Country Within the Last 8 Weeks: No - Immunization History Tetanus Immunization: <5 Years Hx Influenza Vaccine This Season: Yes <Brianna Crowe - Last Filed: 07/25/18 09:33> - Medical History Medical History: Medical History (Last Reviewed 07/21/18 @ 22:53 by Lyly Marin MD) Arthritis Chest pain GERD (gastroesophageal reflux disease) Hypertension Kidney stones - Surgical History Surgical History: Surgical History (Last Reviewed 07/21/18 @ 22:53 by Lyly Marin MD) H/O knee surgery H/O shoulder surgery <Jose Ambrose - Last Filed: 07/25/18 12:13> Medications and Allergies Active Medications: Active Medications Acetaminophen (Tylenol) 650 mg PO Q4H PRN PRN Reason: Temp > 100.4 Al Hydroxide/Mg Hydroxide (Milk Of Magnesia Liq) 30 ml PO Q12H PRN PRN Reason: Mild Constipation Bisacodyl (Dulcolax Supp) 10 mg RECTAL DAILY PRN PRN Reason: SEVERE CONSITIPATION Sodium Chloride (Ns Inj) 1,000 mls @ 100 mls/hr IV.CONT .Q10H [facility] Last Admin: 07/25/18 08:14 Dose: 42 mls/hr Sodium Chloride (Ns Inj) 1,000 mls @ 42 mls/hr IV.CONT .[id number] [facility] Last Admin: 07/24/18 19:55 Dose: Not Given Lactulose (Lactulose Liq) 30 ml PO DAILY PRN PRN Reason: SEVERE CONSITIPATION Last Admin: 07/25/18 08:12 Dose: 30 ml Morphine Sulfate (Morphine Inj) 2 mg IV.PUSH Q4H PRN PRN Reason: PAIN 6-10 Last Admin: 07/25/18 08:13 Dose: 2 mg Ondansetron HCl (Zofran Inj) 4 mg IV.PUSH Q6H PRN PRN Reason: NAUSEA OR VOMITING Senna/Docusate Sodium (Yumi-Colace) 1 tab PO BID [facility] Last Admin: 07/25/18 08:13 Dose: 1 tab Sennosides (Senokot) 17.2 mg PO Q12H PRN PRN Reason: Moderate Constipation Sodium Chloride (Ns Flush) 2 ml IV.FLUSH PRN PRN PRN Reason: FLUSH AFTER USING IV ACCESS Last Admin: 07/22/18 01:29 Dose: 2 ml Sodium Chloride (Ns Flush) 2 ml IV.FLUSH BID [facility] Last Admin: 07/25/18 08:13 Dose: 2 ml <Brianna Crowe - Last Filed: 07/25/18 09:33> Active Medications: Active Medications Acetaminophen (Tylenol) 650 mg PO Q4H PRN PRN Reason: Temp > 100.4 Al Hydroxide/Mg Hydroxide (Milk Of Magnesia Liq) 30 ml PO Q12H PRN PRN Reason: Mild Constipation Bisacodyl (Dulcolax Supp) 10 mg RECTAL DAILY PRN PRN Reason: SEVERE CONSITIPATION Sodium Chloride (Ns Inj) 1,000 mls @ 100 mls/hr IV.CONT .Q10H [facility] Last Admin: 07/25/18 08:14 Dose: 42 mls/hr Sodium Chloride (Ns Inj) 1,000 mls @ 42 mls/hr IV.CONT .[id number] [facility] Last Admin: 07/24/18 19:55 Dose: Not Given Lactulose (Lactulose Liq) 30 ml PO DAILY PRN PRN Reason: SEVERE CONSITIPATION Last Admin: 07/25/18 08:12 Dose: 30 ml Morphine Sulfate (Morphine Inj) 2 mg IV.PUSH Q4H PRN PRN Reason: PAIN 6-10 Last Admin: 07/25/18 08:13 Dose: 2 mg Ondansetron HCl (Zofran Inj) 4 mg IV.PUSH Q6H PRN PRN Reason: NAUSEA OR VOMITING Senna/Docusate Sodium (Yumi-Colace) 1 tab PO BID [facility] Last Admin: 07/25/18 08:13 Dose: 1 tab Sennosides (Senokot) 17.2 mg PO Q12H PRN PRN Reason: Moderate Constipation Sodium Chloride (Ns Flush) 2 ml IV.FLUSH PRN PRN PRN Reason: FLUSH AFTER USING IV ACCESS Last Admin: 07/22/18 01:29 Dose: 2 ml Sodium Chloride (Ns Flush) 2 ml IV.FLUSH BID [facility] Last Admin: 07/25/18 08:13 Dose: 2 ml <Jose Ambrose E - Last Filed: 07/25/18 12:13> Allergies Allergy/AdvReac Type Severity Reaction Status Date / Time penicillin G Allergy Severe SOB, RASH Verified 07/21/18 20:00 clindamycin Allergy Intermediate itching Verified 07/21/18 20:00 rash Home Medications Medication Instructions Recorded Confirmed Type amlodipine 10 mg PO DAILY 07/21/18 07/21/18 History hydrocodone-acetaminophen [[place]] 1 tab PO Q4H PRN 07/21/18 07/21/18 History Exam Vital signs: Vital Signs 07/24/18 11:54 07/24/18 16:00 07/24/18 20:00 Temperature 98.0 F 98.3 F 97.4 F L Pulse Rate 69 71 61 Respiratory Rate 16 16 17 Blood Pressure 134/61 134/63 147/69 H Pulse Oximetry 99 99 95 07/25/18 00:00 07/25/18 08:00 Temperature 98 F 98.4 F Pulse Rate 70 68 Respiratory Rate 17 16 Blood Pressure 127/62 119/63 Pulse Oximetry 96 99 Intake & Output 07/24/18 07/25/18 07/25/18 18:59 06:59 18:59 Intake Total 1400 / 1400 240 / 240 1000 / 1000 Output Total 1700 / 1700 Balance -300 / -300 240 / 240 1000 / 1000 Weight 68.1 kg Intake: IV 1000 / 1000 NS Inj 1,000 ML @ 100 mls/hr IV 1000 / 1000 .CONT .Q10H [facility] Rx#:[id number] Oral 1400 / 1400 240 / 240 Output: Urine 1700 / 1700 Other: # Voids 3 Date of Last Bowel Movement 07/21/18 - Constitutional mild distress - Routine HEENT Exam Head: Present: normocephalic Eye: Absent: conjunctival icterus - Routine Neck Exam Present: supple, full ROM - Routine Chest/Breast/Axilla Exam Chest wall: Absent: tenderness - Routine Respiratory Exam Present: CTA bilaterally. Absent: accessory muscle use, respiratory distress - Routine Cardiovascular Exam Present: RRR - Routine Abdominal Exam Present: soft, normoactive bowel sounds, tenderness, guarding. Absent: firm Comments: Patient guarding epigastric and upper abd area on palpation - Routine Extremities Exam Present: full ROM, pulses intact. Absent: cyanosis, clubbing, edema - Routine Skin Exam Present: dry, warm. Absent: jaundice - Routine Neurological Exam Present: alert, oriented X3 <Crowe,Brianna - Last Filed: 07/25/18 09:33> Vital signs: Vital Signs 07/24/18 16:00 07/24/18 20:00 07/25/18 00:00 Temperature 98.3 F 97.4 F L 98 F Pulse Rate 71 61 70 Respiratory Rate 16 17 17 Blood Pressure 134/63 147/69 H 127/62 Pulse Oximetry 99 95 96 07/25/18 08:00 Temperature 98.4 F Pulse Rate 68 Respiratory Rate 16 Blood Pressure 119/63 Pulse Oximetry 99 Intake & Output 07/24/18 07/25/18 07/25/18 18:59 06:59 18:59 Intake Total 1400 / 1400 240 / 240 1000 / 1000 Output Total 1700 / 1700 150 / 150 Balance -300 / -300 240 / 240 850 / 850 Weight 68.1 kg Intake: IV 1000 / 1000 NS Inj 1,000 ML @ 100 mls/hr IV 1000 / 1000 .CONT .Q10H [facility] Rx#:[id number] Oral 1400 / 1400 240 / 240 Output: Urine 1700 / 1700 150 / 150 Other: # Voids 3 Date of Last Bowel Movement 07/21/18 07/21/18 <Jose Ambrose - Last Filed: 07/25/18 12:13> Results - Labs CBC & Chem 7: 07/25/18 04:10 07/25/18 04:10 Labs: Laboratory Results - last 24 hr 07/24/18 07/25/18 07/25/18 08:52 04:10 04:10 WBC 6.0 RBC 4.02 L Hgb 11.1 L Hct 34.0 L MCV 84.7 MCH 27.6 MCHC 32.6 RDW 16.1 Plt Count 267 MPV 8.6 Neut % (Auto) 53.9 Lymph % (Auto) 28.0 [place] % (Auto) 12.6 H Eos % (Auto) 4.5 H Baso % (Auto) 1.0 Neut # (Auto) 3.2 Lymph # (Auto) 1.7 [place] # (Auto) 0.7 Eos # (Auto) 0.3 Baso # (Auto) 0.1 WBC Differential . Differential Comment Auto diff final Sodium 138 138 Potassium 4.9 4.9 Chloride 105 107 Carbon Dioxide 26.3 25.1 Anion Gap 7 6 BUN 36 H 29 H Creatinine 1.55 H 1.48 H Estimated GFR 55 L 58 L Random Glucose 73 L 81 Calcium 8.4 L 8.6 <Brianna Crowe - Last Filed: 07/25/18 09:33> - Labs CBC & Chem 7: 07/25/18 04:10 07/25/18 04:10 Labs: Laboratory Results - last 24 hr 07/25/18 07/25/18 04:10 04:10 WBC 6.0 RBC 4.02 L Hgb 11.1 L Hct 34.0 L MCV 84.7 MCH 27.6 MCHC 32.6 RDW 16.1 Plt Count 267 MPV 8.6 Neut % (Auto) 53.9 Lymph % (Auto) 28.0 [place] % (Auto) 12.6 H Eos % (Auto) 4.5 H Baso % (Auto) 1.0 Neut # (Auto) 3.2 Lymph # (Auto) 1.7 [place] # (Auto) 0.7 Eos # (Auto) 0.3 Baso # (Auto) 0.1 WBC Differential . Differential Comment Auto diff final Sodium 138 Potassium 4.9 Chloride 107 Carbon Dioxide 25.1 Anion Gap 6 BUN 29 H Creatinine 1.48 H Estimated GFR 58 L Random Glucose 81 Calcium 8.6 <Jose Ambrose - Last Filed: 07/25/18 12:13> Assessment and Plan (1) Abdominal pain Status: Acute Code(s): R10.9 - Unspecified abdominal pain (2) Nausea, vomiting and diarrhea Status: Acute Code(s): R11.2 - Nausea with vomiting, unspecified; R19.7 - Diarrhea, unspecified - Plan Mr. Adonay Moreno is a 68-year-old male patient with a history of hypertension GERD and arthritis. This patient presented to the emergency room on 07/21/2018 with complaints of nausea and vomiting with abdominal pain and diarrhea for 3 weeks. Patient denies fever but does endorse having intermittent chills during this time. He denies any recent travel outside of the [place] and denies any known contacts that are sick. Patient reports a 23 pound weight loss over the last 3 weeks. Upon examination patient points to epigastrium area and states that pain is constant, he rates it as a 10/10 and describes it as a nagging pain. He states that the pain is aggravated when he eats "chilli", and pain is somewhat alleviated when he drinks milk or Ensure. Patient states that this pain radiates to his back at times. He reports loose dark stools over the last 2 weeks with last bowel movement being 1 week ago. Last EGD with colonoscopy done in 2002 per patient where 1 polyp was found and he was informed that it was benign. Patient denies difficulty swallowing he denies pain with swallowing but does endorse intermittent periods of heartburn for which he drinks increased amounts of water. Patient denies EtOH use states he does smoke less than 1 pack per day. States he drinks 4-5 cans of soda each day. He endorses using ibuprofen 400-600 mg tablets 4 tabs daily for joint and muscle pain. Patient denies any known family history of gastrointestinal cancers or disorders. This practice has been consulted to evaluate patient's report of dark stools and abdominal pain. Today's lab results reviewed WBC 6.0 RBC 4.02 hemoglobin 11.1 hematocrit 34.0 INR 1.0. BUN and creatinine 29 and 1.48 greatly improved from admission highly likely due to dehydration. Plan for EGD discussed with patient he verbalizes understanding and agreement. N.p.o. status maintained. Plan: -Maintain NPO status -Continue Lactulose -Avoid NSAIDS -Obtain consent for EGD -Supportive care -Further recommendations to follow This patient has been seen by myself and Dr. Ambrose and this note has been written on his behalf. <Brianna Crowe - Last Filed: 07/25/18 09:33> (1) Abdominal pain Status: Acute Code(s): R10.9 - Unspecified abdominal pain (2) Nausea, vomiting and diarrhea Status: Acute Code(s): R11.2 - Nausea with vomiting, unspecified; R19.7 - Diarrhea, unspecified - Plan Patient seen and examined Agree with above Continue with current supportive care Monitor labs We will proceed with an upper endoscopy next to further evaluate above symptoms further recommendations she will depend on findings <Jose Ambrose - Last Filed: 07/25/18 12:13>
--- NOTE | 2018-07-25 09:43 | P.PNNP ---
Subjective Interval history: Continues to have abdominal pain. Creatinine continues to improve at 1.48 today. Plan for EGD today. <Ivory Khanna - Last Filed: 07/25/18 09:40> Physical Exam Vital signs: Vital Signs 07/24/18 11:54 07/24/18 16:00 07/24/18 20:00 Temperature 98.0 F 98.3 F 97.4 F L Pulse Rate 69 71 61 Respiratory Rate 16 16 17 Blood Pressure 134/61 134/63 147/69 H Pulse Oximetry 99 99 95 07/25/18 00:00 07/25/18 08:00 Temperature 98 F 98.4 F Pulse Rate 70 68 Respiratory Rate 17 16 Blood Pressure 127/62 119/63 Pulse Oximetry 96 99 Intake & Output 07/24/18 07/25/18 07/25/18 18:59 06:59 18:59 Intake Total 1400 / 1400 240 / 240 1000 / 1000 Output Total 1700 / 1700 Balance -300 / -300 240 / 240 1000 / 1000 Weight 68.1 kg Intake: IV 1000 / 1000 NS Inj 1,000 ML @ 100 mls/hr IV 1000 / 1000 .CONT .Q10H [facility] Rx#:[id number] Oral 1400 / 1400 240 / 240 Output: Urine 1700 / 1700 Other: # Voids 3 Date of Last Bowel Movement 07/21/18 Narrative: GENERAL: Alert and oriented SKIN: Warm and dry. HEAD: Normocephalic. EYES: No scleral icterus. No injection or drainage. NECK: Supple, trachea midline. No JVD or lymphadenopathy. CARDIOVASCULAR: Regular rate and rhythm without murmurs, gallops, or rubs. RESPIRATORY: Breath sounds equal bilaterally. No accessory muscle use. GASTROINTESTINAL: Abdomen soft, non-tender, nondistended. MUSCULOSKELETAL: No cyanosis, or edema. BACK: Nontender without obvious deformity. No CVA tenderness <Ivory Khanna - Last Filed: 07/25/18 09:40> Vital signs: Vital Signs 07/25/18 00:00 07/25/18 08:00 07/25/18 13:25 Temperature 98 F 98.4 F 97.4 F L Pulse Rate 70 68 68 Respiratory Rate 17 16 18 Blood Pressure 127/62 119/63 126/68 Pulse Oximetry 96 99 100 07/25/18 15:35 Temperature 97.2 F L Pulse Rate 59 L Respiratory Rate 17 Blood Pressure 167/74 H Pulse Oximetry 100 Intake & Output 07/25/18 07/25/18 07/26/18 06:59 18:59 06:59 Intake Total 240 / 240 1000 / 1000 Output Total 150 / 150 Balance 240 / 240 850 / 850 Weight 68.1 kg Intake: IV 1000 / 1000 NS Inj 1,000 ML @ 100 mls/hr IV 1000 / 1000 .CONT .Q10H [facility] Rx#:[id number] Oral 240 / 240 Output: Urine 150 / 150 Other: # Voids 3 Date of Last Bowel Movement 07/21/18 <Violetta Wan - Last Filed: 07/25/18 20:18> Assessment and Plan - Assessment (1) SANGITA (acute kidney injury) Code(s): N17.9 - Acute kidney failure, unspecified Status: Acute Plan: Acute kidney injury because of dehydration and the possibility of ATN because of hypotension. Most likely has chronic kidney disease because of hypertensive or renovascular disease only creatinine available was from 4 years ago at 1- 1.4 CT of abdomen and pelvis with no acute findings. The kidneys are mentioned as normal size and shape with no mass or hydronephrosis. He also had an ultrasound of the abdomen and the bladder done which showed both kidneys were normal size at 10.1 cm and 10.3 cm. Slightly enlarged prostate. There was no hydronephrosis or mass. Plan Avoid nephrotoxins including IV contrast, aminoglycosides, and NSAIDS Creatinine improving at 1.48 today Continue IVF's as patient is going for EGD today, can discontinue when taking PO well. Continue to monitor strict I+O's. Will monitor urinary output and Labs. <Ivory Khanna - Last Filed: 07/25/18 09:40> - Assessment (1) SANGITA (acute kidney injury) Code(s): N17.9 - Acute kidney failure, unspecified Status: Acute Plan: Patient seen and examined, agree with above. Creatinine continue to improve. Encourage oral intake. <Violetta Wan - Last Filed: 07/25/18 20:18>
--- NOTE | 2018-07-25 11:56 | P.PN ---
Subjective Interval history: Still with abd pain. No n/v/d/c. Plan for EGD. No fever or chills. Physical Exam Vital signs: Vital Signs 07/24/18 11:54 07/24/18 16:00 07/24/18 20:00 Temperature 98.0 F 98.3 F 97.4 F L Pulse Rate 69 71 61 Respiratory Rate 16 16 17 Blood Pressure 134/61 134/63 147/69 H Pulse Oximetry 99 99 95 07/25/18 00:00 07/25/18 08:00 Temperature 98 F 98.4 F Pulse Rate 70 68 Respiratory Rate 17 16 Blood Pressure 127/62 119/63 Pulse Oximetry 96 99 Intake & Output 07/24/18 07/25/18 07/25/18 18:59 06:59 18:59 Intake Total 1400 / 1400 240 / 240 1000 / 1000 Output Total 1700 / 1700 150 / 150 Balance -300 / -300 240 / 240 850 / 850 Weight 68.1 kg Intake: IV 1000 / 1000 NS Inj 1,000 ML @ 100 mls/hr IV 1000 / 1000 .CONT .Q10H [facility] Rx#:[id number] Oral 1400 / 1400 240 / 240 Output: Urine 1700 / 1700 150 / 150 Other: # Voids 3 Date of Last Bowel Movement 07/21/18 07/21/18 Narrative: GENERAL: Alert and oriented CARDIOVASCULAR: Regular rate and rhythm without murmurs, gallops, or rubs. RESPIRATORY: Breath sounds equal bilaterally. No accessory muscle use. GASTROINTESTINAL: Abdomen soft, non-tender, nondistended. MUSCULOSKELETAL: No cyanosis, or edema. BACK: Nontender without obvious deformity. No CVA tenderness Results - Labs CBC & Chem 7: 07/25/18 04:10 07/25/18 04:10 Laboratory Results - last 24 hr 07/25/18 07/25/18 04:10 04:10 WBC 6.0 RBC 4.02 L Hgb 11.1 L Hct 34.0 L MCV 84.7 MCH 27.6 MCHC 32.6 RDW 16.1 Plt Count 267 MPV 8.6 Neut % (Auto) 53.9 Lymph % (Auto) 28.0 [place] % (Auto) 12.6 H Eos % (Auto) 4.5 H Baso % (Auto) 1.0 Neut # (Auto) 3.2 Lymph # (Auto) 1.7 [place] # (Auto) 0.7 Eos # (Auto) 0.3 Baso # (Auto) 0.1 WBC Differential . Differential Comment Auto diff final Sodium 138 Potassium 4.9 Chloride 107 Carbon Dioxide 25.1 Anion Gap 6 BUN 29 H Creatinine 1.48 H Estimated GFR 58 L Random Glucose 81 Calcium 8.6 Assessment and Plan - Assessment (1) SANGITA (acute kidney injury) Code(s): N17.9 - Acute kidney failure, unspecified Status: Acute (2) Abdominal pain Code(s): R10.9 - Unspecified abdominal pain Status: Acute (3) Nausea, vomiting and diarrhea Code(s): R11.2 - Nausea with vomiting, unspecified; R19.7 - Diarrhea, unspecified Status: Acute - Plan SANGITA: Creatinine 9.26 on admission, previously 1.47 on 06/04/14, likely due to nausea/vomiting/diarrhea and decreased PO intake, K+ normal. IVF for hydration , monitor I/O. Check U/a no signs of infection. Normal renal US, normal CPK. Consult Nephrology for further eval/intervention. No NSAIDs. Kidney function improving but not at baseline, no need for HD so far Abdominal Pain: Unclear etiology, reports ongoing nausea/vomiting/diarrhea with associated weight loss, CT Abd/Pelvis with no acute findings, images reviewed, LFTs normal. Analgesics/antiemetics as needed. Started famotidine no improvement The patient also complains of having a black stool no fresh blood in it. Had a colonoscopy a long time ago. We will consult GI for further evaluation. Patient possible bleeding. Intractable N/V/D: x3 wks, unlikely gastroenteritis, CT Abd/Pelvis w/ no acute findings, check stool studies/C Diff, analgesics/antiemetics as needed, requesting food, diet as tolerated. DVT Prophylaxis: SCD/Teds GI PPx : famotidine CM consulted for DC plan
--- NOTE | 2018-07-25 15:59 | P.PCN ---
Date of procedure: 07/25/18 Pre-op diagnosis: Abdominal pain, nausea and vomiting, reflux, weight loss Procedure: PROCEDURE PERFORMED EGD with biopsy PROCEDURE: The procedure, risks and benefits were discussed with Patient/POA and informed consent was obtained. Anesthesia sedated Patient with Diprivan. Patient was placed in the left lateral decubitus position. EGD: The Pentax videoscope was introduced through the oropharynx and advanced to the second portion of the duodenum under direct visualization. Retroflexion was performed in the stomach. FINDINGS: The esophagus this appeared to be unremarkable and within normal limits The stomach there was a moderately sized hiatal hernia there was also patchy erythema in the antrum but no ulcerations and no erosions the rest of the stomach was unremarkable antral biopsies were taken for further evaluation The duodenum there was patchy erythema in the duodenum of unclear significance this was biopsied otherwise evaluation unremarkable ESTIMATED BLOOD LOSS: None SPECIMENS REMOVED: Gastric and duodenal biopsies COMPLICATIONS: None IMPRESSION: Hiatal hernia Gastritis Duodenitis PLAN: Await biopsies Advance diet as tolerated Monitor labs and transfuse if needed Continue with current supportive care Recommend Protonix 40 mg daily Follow-up with GI post discharge Anesthesia: MAC Surgeon: Jose Ambrose Condition: stable Disposition: floor
[2018-07-26] MEDS: Morphine Sulfate Inj 2 MG/ML Vial IV.PUSH PRN ×3 (03:33→13:25)
[2018-07-26] MEDS: Sod Chloride 0.9% Inj 1,000 ML IV.CONT SCH ×3 (03:44→22:30)
[2018-07-26 05:04] LABS: Hematocrit 33.5 % (39.0-51.0); Mean Corpuscular HGB Conc 32.9 % (32.0-36.0); Mean Corpuscular Hemoglobin 28.1 pg (27.0-34.0); Mean Corpuscular Volume 85.3 fL (80.0-100.0); Mean Platelet Volume 8.7 fL (7.0-11.0); Platelet Count 277 th/mm3 (150-450); Red Blood Count 3.93 mil/mm3 (4.50-5.90); Red Cell Distribution Width 15.7 % (11.6-17.2)
[2018-07-26 05:39] LABS: Calcium 8.6 mg/dL (8.5-10.1); Carbon Dioxide 29.7 meq/L (21.0-32.0); Potassium 4.8 meq/L (3.5-5.1)
[2018-07-26] MEDS: Senna/Docusate Sodium 8.6/50 MG Tablet PO SCH ×2 (08:19→20:02)
--- NOTE | 2018-07-26 10:46 | P.PNNP ---
Subjective Interval history: EGD yesterday. Continues to complain of abdominal pain that kept him up last night. Tolerating oral fluids. Creatinine stable at 1.43 today. <Ivory Khanna - Last Filed: 07/26/18 10:42> Physical Exam Vital signs: Vital Signs 07/25/18 13:25 07/25/18 15:35 07/25/18 20:00 Temperature 97.4 F L 97.2 F L 97.8 F Pulse Rate 68 59 L 63 Respiratory Rate 18 17 20 Blood Pressure 126/68 167/74 H 134/62 Pulse Oximetry 100 100 98 07/26/18 00:00 07/26/18 08:00 Temperature 98.2 F 98.0 F Pulse Rate 65 59 L Respiratory Rate 20 16 Blood Pressure 127/63 134/63 Pulse Oximetry 99 100 Intake & Output 07/25/18 07/26/18 07/26/18 18:59 06:59 18:59 Intake Total 1000 / 1000 720 / 720 1000 / 1000 Output Total 150 / 150 1300 / 1300 675 / 675 Balance 850 / 850 -580 / -580 325 / 325 Weight 67.5 kg Intake: IV 1000 / 1000 1000 / 1000 NS Inj 1,000 ML @ 100 mls/hr IV 1000 / 1000 1000 / 1000 .CONT .Q10H [facility] Rx#:[id number] Oral 720 / 720 Output: Urine 150 / 150 1300 / 1300 675 / 675 Other: Date of Last Bowel Movement 07/21/18 07/21/18 Narrative: GENERAL: Alert and oriented SKIN: Warm and dry. HEAD: Normocephalic. EYES: No scleral icterus. No injection or drainage. NECK: Supple, trachea midline. No JVD or lymphadenopathy. CARDIOVASCULAR: Regular rate and rhythm without murmurs, gallops, or rubs. RESPIRATORY: Breath sounds equal bilaterally. No accessory muscle use. GASTROINTESTINAL: Abdomen soft, non-tender, nondistended. MUSCULOSKELETAL: No cyanosis, or edema. BACK: Nontender without obvious deformity. No CVA tenderness <Ivory Khanna - Last Filed: 07/26/18 10:42> Assessment and Plan - Assessment (1) SANGITA (acute kidney injury) Code(s): N17.9 - Acute kidney failure, unspecified Status: Acute Plan: Acute kidney injury because of dehydration and the possibility of ATN because of hypotension. Most likely has chronic kidney disease because of hypertensive or renovascular disease only creatinine available was from 4 years ago at 1- 1.4 CT of abdomen and pelvis with no acute findings. The kidneys are mentioned as normal size and shape with no mass or hydronephrosis. He also had an ultrasound of the abdomen and the bladder done which showed both kidneys were normal size at 10.1 cm and 10.3 cm. Slightly enlarged prostate. There was no hydronephrosis or mass. Plan Avoid nephrotoxins including IV contrast, aminoglycosides, and NSAIDS Creatinine continues to improve 1.43 today, non oliguric IVF's discontinued. Continue to monitor strict I+O's. Will monitor urinary output and Labs. <Ivory Khanna - Last Filed: 07/26/18 10:42> - Assessment (1) SANGITA (acute kidney injury) Code(s): N17.9 - Acute kidney failure, unspecified Status: Acute Plan: Patient seen and examined, agree with above. Creatinine continue to improve. Avoid Nephrotoxins. <Violetta Wan - Last Filed: 07/30/18 19:22>
--- NOTE | 2018-07-26 11:13 | P.PN ---
Subjective Interval history: Still with some. pain in his abd' Some nause no vomiting With constipation s/p egd yesterday Physical Exam Vital signs: Vital Signs 07/25/18 13:25 07/25/18 15:35 07/25/18 20:00 Temperature 97.4 F L 97.2 F L 97.8 F Pulse Rate 68 59 L 63 Respiratory Rate 18 17 20 Blood Pressure 126/68 167/74 H 134/62 Pulse Oximetry 100 100 98 07/26/18 00:00 07/26/18 08:00 Temperature 98.2 F 98.0 F Pulse Rate 65 59 L Respiratory Rate 20 16 Blood Pressure 127/63 134/63 Pulse Oximetry 99 100 Intake & Output 07/25/18 07/26/18 07/26/18 18:59 06:59 18:59 Intake Total 1000 / 1000 720 / 720 1000 / 1000 Output Total 150 / 150 1300 / 1300 675 / 675 Balance 850 / 850 -580 / -580 325 / 325 Weight 67.5 kg Intake: IV 1000 / 1000 1000 / 1000 NS Inj 1,000 ML @ 100 mls/hr IV 1000 / 1000 1000 / 1000 .CONT .Q10H [facility] Rx#:[id number] Oral 720 / 720 Output: Urine 150 / 150 1300 / 1300 675 / 675 Other: Date of Last Bowel Movement 07/21/18 07/21/18 Narrative: GENERAL: Pleasant skinny AA male, alert and oriented CARDIOVASCULAR: Regular rate and rhythm without murmurs, gallops, or rubs. RESPIRATORY: Breath sounds equal bilaterally. No accessory muscle use. GASTROINTESTINAL: Abdomen soft, diffuse tenderness to palpation, nondistended. MUSCULOSKELETAL: No cyanosis, or edema. BACK: Nontender without obvious deformity. No CVA tenderness Results - Labs CBC & Chem 7: 07/26/18 04:05 07/27/18 03:57 Laboratory Results - last 24 hr 07/23/18 07/26/18 07/26/18 06:24 04:05 04:05 WBC 5.0 RBC 3.93 L Hgb 11.0 L Hct 33.5 L MCV 85.3 MCH 28.1 MCHC 32.9 RDW 15.7 Plt Count 277 MPV 8.7 Sodium 137 Potassium 4.8 Chloride 102 Carbon Dioxide 29.7 Anion Gap 5 BUN 23 H Creatinine 1.43 H Estimated GFR 60 L Random Glucose 79 Calcium 8.6 Anti-Proteinase 3 Less than 1.0 Anti-Myeloperoxidase Less than 1.0 Assessment and Plan - Assessment (1) SANGITA (acute kidney injury) Code(s): N17.9 - Acute kidney failure, unspecified Status: Acute (2) Abdominal pain Code(s): R10.9 - Unspecified abdominal pain Status: Acute (3) Nausea, vomiting and diarrhea Code(s): R11.2 - Nausea with vomiting, unspecified; R19.7 - Diarrhea, unspecified Status: Acute - Plan SANGITA: Creatinine 9.26 on admission, previously 1.47 on 06/04/14, likely due to nausea/vomiting/diarrhea and decreased PO intake, K+ normal. IVF for hydration , monitor I/O. Check U/a no signs of infection. Normal renal US, normal CPK. Consult Nephrology for further eval/intervention. No NSAIDs. Kidney function improving but not at baseline, no need for HD so far Abdominal Pain: Unclear etiology, reports ongoing nausea/vomiting/diarrhea with associated weight loss, CT Abd/Pelvis with no acute findings, images reviewed, LFTs normal. Analgesics/antiemetics as needed. Started famotidine no improvement The patient also complains of having a black stool no fresh blood in it. Had a colonoscopy a long time ago. We will consult GI for further evaluation. Patient possible bleeding. Intractable N/V/D: x3 wks, unlikely gastroenteritis, CT Abd/Pelvis w/ no acute findings, check stool studies/C Diff, analgesics/antiemetics as needed, requesting food, diet as tolerated. DVT Prophylaxis: SCD/Teds GI PPx : famotidine CM consulted for DC plan
--- NOTE | 2018-07-26 11:23 | P.PNGI ---
Subjective Interval history: Patient resting in bed with eyes closed. Awakens easily and reports mild epigastric pain that is intermittent describes as mild. Tolerated breakfast meal well per pt. Denies nausea or vomiting. EGD results discussed with patient. Advised patient to follow up with GI at discharge to obtain bx results and manage care further. Patient agrees to do same. <Brianna Crowe - Last Filed: 07/26/18 11:33> Physical Exam Vital signs: Vital Signs 07/25/18 13:25 07/25/18 15:35 07/25/18 20:00 Temperature 97.4 F L 97.2 F L 97.8 F Pulse Rate 68 59 L 63 Respiratory Rate 18 17 20 Blood Pressure 126/68 167/74 H 134/62 Pulse Oximetry 100 100 98 07/26/18 00:00 07/26/18 08:00 Temperature 98.2 F 98.0 F Pulse Rate 65 59 L Respiratory Rate 20 16 Blood Pressure 127/63 134/63 Pulse Oximetry 99 100 Intake & Output 07/25/18 07/26/18 07/26/18 18:59 06:59 18:59 Intake Total 1000 / 1000 720 / 720 1000 / 1000 Output Total 150 / 150 1300 / 1300 675 / 675 Balance 850 / 850 -580 / -580 325 / 325 Weight 67.5 kg Intake: IV 1000 / 1000 1000 / 1000 NS Inj 1,000 ML @ 100 mls/hr IV 1000 / 1000 1000 / 1000 .CONT .Q10H [facility] Rx#:[id number] Oral 720 / 720 Output: Urine 150 / 150 1300 / 1300 675 / 675 Other: Date of Last Bowel Movement 07/21/18 07/21/18 - Constitutional no acute distress - Routine HEENT Exam Head: Present: normocephalic - Routine Neck Exam Present: supple - Routine Respiratory Exam Present: CTA bilaterally. Absent: accessory muscle use - Routine Cardiovascular Exam Present: RRR - Routine Abdominal Exam Present: soft, normoactive bowel sounds Comments: mildly bloated not firm or tender on exam - Routine Extremities Exam Present: full ROM, pulses intact. Absent: clubbing, edema - Routine Skin Exam Present: dry, warm. Absent: jaundice - Routine Neurological Exam Present: alert, oriented X3 - Detailed Neurological Exam: Coma Scale Eye Opening: Spontaneous Verbal Response: Oriented Motor Response: Obey commands Leke Coma Scale Total: 15 - Routine Psychiatric Exam Present: normal affect, cooperative <Brianna Crowe - Last Filed: 07/26/18 11:33> Vital signs: Vital Signs 07/25/18 20:00 07/26/18 00:00 07/26/18 08:00 Temperature 97.8 F 98.2 F 98.0 F Pulse Rate 63 65 59 L Respiratory Rate 20 20 16 Blood Pressure 134/62 127/63 134/63 Pulse Oximetry 98 99 100 07/26/18 12:00 Temperature 98.5 F Pulse Rate 58 L Respiratory Rate 18 Blood Pressure 118/62 Pulse Oximetry 99 Intake & Output 07/25/18 07/26/18 07/26/18 18:59 06:59 18:59 Intake Total 1000 / 1000 720 / 720 1315 / 1315 Output Total 150 / 150 1300 / 1300 675 / 675 Balance 850 / 850 -580 / -580 640 / 640 Weight 67.5 kg Intake: IV 1000 / 1000 1315 / 1315 NS Inj 1,000 ML @ 42 mls/hr IV. 1000 / 1000 1315 / 1315 CONT .[id number] [facility] Rx#:[id number] Oral 720 / 720 Output: Urine 150 / 150 1300 / 1300 675 / 675 Other: Date of Last Bowel Movement 07/21/18 07/21/18 <Jose Ambrose - Last Filed: 07/26/18 17:16> Results - Labs CBC & Chem 7: 07/26/18 04:05 07/26/18 04:05 Laboratory Results - last 24 hr 07/23/18 07/26/18 07/26/18 06:24 04:05 04:05 WBC 5.0 RBC 3.93 L Hgb 11.0 L Hct 33.5 L MCV 85.3 MCH 28.1 MCHC 32.9 RDW 15.7 Plt Count 277 MPV 8.7 Sodium 137 Potassium 4.8 Chloride 102 Carbon Dioxide 29.7 Anion Gap 5 BUN 23 H Creatinine 1.43 H Estimated GFR 60 L Random Glucose 79 Calcium 8.6 Anti-Proteinase 3 Less than 1.0 Anti-Myeloperoxidase Less than 1.0 <Brianna Crowe - Last Filed: 07/26/18 11:33> - Labs CBC & Chem 7: 07/26/18 04:05 07/26/18 04:05 Laboratory Results - last 24 hr 07/26/18 07/26/18 07/26/18 04:05 04:05 13:55 WBC 5.0 RBC 3.93 L Hgb 11.0 L Hct 33.5 L MCV 85.3 MCH 28.1 MCHC 32.9 RDW 15.7 Plt Count 277 MPV 8.7 Sodium 137 Potassium 4.8 Chloride 102 Carbon Dioxide 29.7 Anion Gap 5 BUN 23 H Creatinine 1.43 H Estimated GFR 60 L Random Glucose 79 Calcium 8.6 Stl C.difficile Tox PCR Cancelled St C. diff Tox Epid 027 Cancelled <Jose Ambrose - Last Filed: 07/26/18 17:16> Assessment and Plan (1) Abdominal pain Status: Acute Code(s): R10.9 - Unspecified abdominal pain (2) Nausea, vomiting and diarrhea Status: Acute Code(s): R11.2 - Nausea with vomiting, unspecified; R19.7 - Diarrhea, unspecified - Plan Mr. Adonay Moreno is a 68-year-old male patient with a history of hypertension GERD and arthritis. This patient presented to the emergency room on 07/21/2018 with complaints of nausea and vomiting with abdominal pain and diarrhea for 3 weeks. Patient denies fever but does endorse having intermittent chills during this time. He denies any recent travel outside of the [place] and denies any known contacts that are sick. Patient reports a 23 pound weight loss over the last 3 weeks. Upon examination patient points to epigastrium area and states that pain is constant, he rates it as a 10/10 and describes it as a nagging pain. He states that the pain is aggravated when he eats "chilli", and pain is somewhat alleviated when he drinks milk or Ensure. Patient states that this pain radiates to his back at times. He reports loose dark stools over the last 2 weeks with last bowel movement being 1 week ago. Last EGD with colonoscopy done in 2002 per patient where 1 polyp was found and he was informed that it was benign. Patient denies difficulty swallowing he denies pain with swallowing but does endorse intermittent periods of heartburn for which he drinks increased amounts of water. Patient denies EtOH use states he does smoke less than 1 pack per day. States he drinks 4-5 cans of soda each day. He endorses using ibuprofen 400-600 mg tablets 4 tabs daily for joint and muscle pain. Patient denies any known family history of gastrointestinal cancers or disorders. This practice has been consulted to evaluate patient's report of dark stools and abdominal pain. Today's lab results reviewed WBC 6.0 RBC 4.02 hemoglobin 11.1 hematocrit 34.0 INR 1.0. BUN and creatinine 29 and 1.48 greatly improved from admission highly likely due to dehydration. Plan for EGD discussed with patient he verbalizes understanding and agreement. N.p.o. status maintained 07/26/18- Patient resting comfortably in bed. Reports mild epigastric discomfort he states is unchanged since admission. Denies nausea or vomiting. Tolerating meals well without difficulty. Denies any noted bleeding. AM labs Hgb 11.0 Hct 33.5. EGD done 07/25/18 findings reveal - The esophagus this appeared to be unremarkable and within normal limits.The stomach there was a moderately sized hiatal hernia there was also patchy erythema in the antrum but no ulcerations and no erosions the rest of the stomach was unremarkable antral biopsies were taken for further evaluation.The duodenum there was patchy erythema in the duodenum of unclear significance this was biopsied otherwise evaluation unremarkable. IMPRESSION:Hiatal hernia Gastritis,Duodenitis. EGD results discussed with patient. Patient advised regarding anti reflux behavior/ diet. Patient advised to avoid aspirin, nsaids, etoh,coffee, carbonated drinks and spicy foods. Pt agrees to call office on discharge to arrange followup appointment and obtain bx results. Plan: Diet as tolerated Monitor labs Continue Protonix Supportive care Follow up with GI post discharge This patient has been seen by myself and Dr. Monahan and this note is written on his behalf <Brianna Crowe - Last Filed: 07/26/18 11:33> (1) Abdominal pain Status: Acute Code(s): R10.9 - Unspecified abdominal pain (2) Nausea, vomiting and diarrhea Status: Acute Code(s): R11.2 - Nausea with vomiting, unspecified; R19.7 - Diarrhea, unspecified - Plan Patient seen and examined Agree with above Continue with current supportive care Monitor labs Patient reports constipation, patient will need a laxative such as milk of magnesia or MiraLAX <Jose Ambrose - Last Filed: 07/26/18 17:16>
--- NOTE | 2018-07-26 12:47 | P.DS ---
Date of admission: 07/21/18 22:23 Primary care physician: No Primary Care Physician Brief History from admission: This is a 68-year-old male with a PMH of HTN, GERD and Arthritis who presents to ER with complaints of abdominal pain, nausea, vomiting and diarrhea x3 wks. Denies fever or chills, no sick contacts, no recent travel. States symptoms have been ongoing x3wks, unable to take PO due to nausea/vomiting. +weight loss of approx 20lbs. No previous h/o similar symptoms. Reports drinking " lots of water", however minimal urine output. On arrival, BP 100/61, HR 90, O2 sat 96% on RA, Afebrile. CBC unremarkable. INR 1.0. Creatinine 9.26, previously 1.47 on 06/04/2014. Troponin 0.03. CT Abdomen/Pelvis with no acute findings. Pt denies previous h/o kidney disease DS: Diagnosis - Discharge Diagnosis (1) SANGITA (acute kidney injury) Status: Acute (2) Abdominal pain Status: Acute (3) Nausea, vomiting and diarrhea Status: Acute DS: Medications - Discharge Medications Prescriptions: pantoprazole [Protonix] 40 mg PO DAILY #30 tab sucralfate [Carafate] 2 g PO BID #30 tab DS: Summary Hospital Course: SANGITA: Creatinine 9.26 on admission, previously 1.47 on 06/04/14, likely due to nausea/vomiting/diarrhea and decreased PO intake, K+ normal. IVF for hydration , monitor I/O. Check U/a no signs of infection. Normal renal US, normal CPK. Consult Nephrology for further eval/intervention. No NSAIDs. Kidney function improving but not at baseline, no need for HD so far Abdominal Pain: Hiatal hernia Gastritis,Duodenitis. Patient with gastritis reports ongoing nausea/vomiting/diarrhea with associated weight loss, CT Abd/Pelvis with no acute findings, images reviewed, LFTs normal. Analgesics/antiemetics as needed. Started famotidine no improvement The patient also complains of having a black stool no fresh blood in it. Had a colonoscopy a long time ago. Consult GI s/p EGD Hiatal hernia Gastritis,Duodenitis. Patient advised regarding anti reflux behavior/ diet. Patient advised to avoid aspirin, nsaids, etoh,coffee, carbonated drinks and spicy foods. Patient to follow-up with a GI for biopsy results as outpatient Still with abd pain will add carafate, also patient with constipation on bowel regimen Intractable N/V/D: x3 wks, unlikely gastroenteritis, CT Abd/Pelvis w/ no acute findings, check stool studies/C Diff, analgesics/antiemetics as needed, requesting food, diet as tolerated. Resolved. Physical deconditioning consult PT Constipation: laxatives, stool softeners. Constipation resolved with stool softeners, suppositories and laxatives. Patient says he has laxatives at home. Chronic pain resume home regimen Patient improved. Had bowel movement. GI clear for discharge. Patient is discharged home in stable condition to follow with PCP and consultants as outpatient. - Time Spent with Patient Total time spent providing and/or coordinating discharge services: Greater than 30 minutes - Quality: VTE Deep Vein Thrombosis/Pulmonary Embolism Present on Admission: No Exam Vital signs: Vital Signs 07/25/18 13:25 07/25/18 15:35 07/25/18 20:00 Temperature 97.4 F L 97.2 F L 97.8 F Pulse Rate 68 59 L 63 Respiratory Rate 18 17 20 Blood Pressure 126/68 167/74 H 134/62 Pulse Oximetry 100 100 98 07/26/18 00:00 07/26/18 08:00 Temperature 98.2 F 98.0 F Pulse Rate 65 59 L Respiratory Rate 20 16 Blood Pressure 127/63 134/63 Pulse Oximetry 99 100 Intake & Output 07/25/18 07/26/18 07/26/18 18:59 06:59 18:59 Intake Total 1000 / 1000 720 / 720 1315 / 1315 Output Total 150 / 150 1300 / 1300 675 / 675 Balance 850 / 850 -580 / -580 640 / 640 Weight 67.5 kg Intake: IV 1000 / 1000 1315 / 1315 NS Inj 1,000 ML @ 42 mls/hr IV. 1000 / 1000 1315 / 1315 CONT .[id number] [facility] Rx#:[id number] Oral 720 / 720 Output: Urine 150 / 150 1300 / 1300 675 / 675 Other: Date of Last Bowel Movement 07/21/18 07/21/18 Narrative: GENERAL: Alert and oriented CARDIOVASCULAR: Regular rate and rhythm without murmurs, gallops, or rubs. RESPIRATORY: Breath sounds equal bilaterally. No accessory muscle use. GASTROINTESTINAL: Abdomen soft, non-tender, nondistended. MUSCULOSKELETAL: No cyanosis, or edema. BACK: Nontender without obvious deformity. No CVA tenderness Results Procedures completed during hospitalization: EGD Pending studies at discharge: Pending at discharge 07/25/18 16:52 Surgical [PTH] Routine Labs on day of discharge: Labs from last 24 hours 07/26/18 07/26/18 07/23/18 04:05 04:05 06:24 WBC 5.0 RBC 3.93 L Hgb 11.0 L Hct 33.5 L MCV 85.3 MCH 28.1 MCHC 32.9 RDW 15.7 Plt Count 277 MPV 8.7 Sodium 137 Potassium 4.8 Chloride 102 Carbon Dioxide 29.7 Anion Gap 5 BUN 23 H Creatinine 1.43 H Estimated GFR 60 L Random Glucose 79 Calcium 8.6 Anti-Proteinase 3 Less than 1.0 Anti-Myeloperoxidase Less than 1.0 - Impressions ITS Impressions Abdomen/Pelvis CT 07/21/18 21:30 CONCLUSION: No acute findings in the abdomen and pelvis. Abdomen/Bladder Ultrasound 07/22/18 00:00 CONCLUSION: 1. Heterogeneous prostate otherwise unremarkable. Discharge Plan - Discharge Disposition Patient Disposition: Discharge Home - Discharge Condition Condition: Stable - Discharge Order Discharge Orders: Discharge Order (Routine); Ordered 07/27/18 Ordered By: Freda Dubon - Discharge Details Anticipated Discharge Date: 07/26/18 - Physicians Team Primary Care Provider: Primary Care Cyn Lombardi Attending Provider: Freda Dubon Other Providers: Violetta Wan MD ; Jose Ambrose MD
--- NOTE | 2018-07-26 12:49 | P.DCO ---
- Diagnosis (1) Acute renal failure (2) Vomiting - Physical Therapy Order: Evaluate and treat - Home Health Nursing Order: Medical education, Signs/symptoms of disease process, Medication education-adverse effect, Nursing assessment with vital signs - Case Management Consult Yes - Certification I have seen patient Adonay Moreno on 07/26/18. My clinical findings support the need for the requested home health care services because: Limited mobility due to disease progression, Patient has SOB, Deconditioned with increased weakness I certify that my clinical findings support that this patient is homebound because: Post-op weakness (1) Acute renal failure Qualifiers: Acute renal failure type: unspecified Qualified Code(s): N17.9 - Acute kidney failure, unspecified (2) Vomiting Qualifiers: Vomiting type: unspecified Vomiting Intractability: non-intractable Nausea presence: with nausea Qualified Code(s): R11.2 - Nausea with vomiting, unspecified
[2018-07-26 13:39] VITALS: RESP 18
--- NOTE | 2018-07-26 15:37 | P.PN ---
Subjective Interval history: The patient is in bed he is still with abdominal pain. He did not have a bowel movement. No nausea vomiting able to eat some food. Feels very weak not able to ambulate. PT is consulted. No fever or chills. Physical Exam Vital signs: Vital Signs 07/25/18 15:35 07/25/18 20:00 07/26/18 00:00 Temperature 97.2 F L 97.8 F 98.2 F Pulse Rate 59 L 63 65 Respiratory Rate 17 20 20 Blood Pressure 167/74 H 134/62 127/63 Pulse Oximetry 100 98 99 07/26/18 08:00 07/26/18 12:00 Temperature 98.0 F 98.5 F Pulse Rate 59 L 58 L Respiratory Rate 16 18 Blood Pressure 134/63 118/62 Pulse Oximetry 100 99 Intake & Output 07/25/18 07/26/18 07/26/18 18:59 06:59 18:59 Intake Total 1000 / 1000 720 / 720 1315 / 1315 Output Total 150 / 150 1300 / 1300 675 / 675 Balance 850 / 850 -580 / -580 640 / 640 Weight 67.5 kg Intake: IV 1000 / 1000 1315 / 1315 NS Inj 1,000 ML @ 42 mls/hr IV. 1000 / 1000 1315 / 1315 CONT .[id number] [facility] Rx#:[id number] Oral 720 / 720 Output: Urine 150 / 150 1300 / 1300 675 / 675 Other: Date of Last Bowel Movement 07/21/18 07/21/18 Narrative: GENERAL: Alert and oriented SKIN: Warm and dry. HEAD: Normocephalic. EYES: No scleral icterus. No injection or drainage. NECK: Supple, trachea midline. No JVD or lymphadenopathy. CARDIOVASCULAR: Regular rate and rhythm without murmurs, gallops, or rubs. RESPIRATORY: Breath sounds equal bilaterally. No accessory muscle use. GASTROINTESTINAL: Abdomen soft, non-tender, nondistended. MUSCULOSKELETAL: No cyanosis, or edema. BACK: Nontender without obvious deformity. No CVA tenderness Results - Labs CBC & Chem 7: 07/26/18 04:05 07/26/18 04:05 Laboratory Results - last 24 hr 07/26/18 07/26/18 07/26/18 04:05 04:05 13:55 WBC 5.0 RBC 3.93 L Hgb 11.0 L Hct 33.5 L MCV 85.3 MCH 28.1 MCHC 32.9 RDW 15.7 Plt Count 277 MPV 8.7 Sodium 137 Potassium 4.8 Chloride 102 Carbon Dioxide 29.7 Anion Gap 5 BUN 23 H Creatinine 1.43 H Estimated GFR 60 L Random Glucose 79 Calcium 8.6 Stl C.difficile Tox PCR Cancelled St C. diff Tox Epid 027 Cancelled Assessment and Plan - Assessment (1) Acute renal failure Code(s): N17.9 - Acute kidney failure, unspecified Status: Acute (2) Vomiting Code(s): R11.10 - Vomiting, unspecified Status: Acute (3) Abdominal pain Code(s): R10.9 - Unspecified abdominal pain Status: Acute - Plan SANGITA: Creatinine 9.26 on admission, previously 1.47 on 06/04/14, likely due to nausea/vomiting/diarrhea and decreased PO intake, K+ normal. IVF for hydration , monitor I/O. Check U/a no signs of infection. Normal renal US, normal CPK. Consult Nephrology for further eval/intervention. No NSAIDs. Kidney function improving but not at baseline, no need for HD so far Abdominal Pain: Hiatal hernia Gastritis,Duodenitis. Patient with gastritis reports ongoing nausea/vomiting/diarrhea with associated weight loss, CT Abd/Pelvis with no acute findings, images reviewed, LFTs normal. Analgesics/antiemetics as needed. Started famotidine no improvement The patient also complains of having a black stool no fresh blood in it. Had a colonoscopy a long time ago. Consult GI s/p EGD Hiatal hernia Gastritis,Duodenitis. Patient advised regarding anti reflux behavior/ diet. Patient advised to avoid aspirin, nsaids, etoh,coffee, carbonated drinks and spicy foods. Still with abd pain will add carafate, also patient with constipation on bowel regimen Intractable N/V/D: x3 wks, unlikely gastroenteritis, CT Abd/Pelvis w/ no acute findings, check stool studies/C Diff, analgesics/antiemetics as needed, requesting food, diet as tolerated. Resolved. Physical deconditioning consult PT Constipation: laxatives, stool softeners DVT Prophylaxis: SCD/Teds GI PPx : famotidine CM consulted for DC plan DC poss tomorrow if improves,if has a BM (1) Acute renal failure Qualifiers: Acute renal failure type: unspecified Qualified Code(s): N17.9 - Acute kidney failure, unspecified (2) Vomiting Qualifiers: Vomiting type: unspecified Vomiting Intractability: non-intractable Nausea presence: with nausea Qualified Code(s): R11.2 - Nausea with vomiting, unspecified
[2018-07-27 05:30] LABS: Carbon Dioxide 26.5 meq/L (21.0-32.0); Potassium 4.9 meq/L (3.5-5.1)
[2018-07-27] MEDS ORDERED: Sucralfate 1 GM Tablet PO ONE (08:30)
[2018-07-27 08:34] VITALS: TEMP 97.8
[2018-07-27] MEDS: Sod Chloride 0.9% Inj 1,000 ML IV.CONT SCH (10:03)
[2018-07-27] MEDS: Senna/Docusate Sodium 8.6/50 MG Tablet PO SCH (10:03)
--- NOTE | 2018-07-27 10:33 | P.PNNP ---
Subjective Interval history: Creatinine continues to improve. Patient reported that he will be discharged today. <Ivory Khanna - Last Filed: 07/27/18 10:29> Physical Exam Vital signs: Vital Signs 07/26/18 12:00 07/26/18 16:00 07/26/18 20:00 Temperature 98.5 F 97.9 F 98.1 F Pulse Rate 58 L 67 63 Respiratory Rate 18 18 18 Blood Pressure 118/62 145/67 H 129/60 Pulse Oximetry 99 100 99 07/26/18 21:58 07/26/18 22:28 07/27/18 00:00 Temperature 98 F Pulse Rate 63 Respiratory Rate 18 18 18 Blood Pressure 131/61 Pulse Oximetry 98 07/27/18 02:13 07/27/18 02:43 07/27/18 06:47 Temperature Pulse Rate Respiratory Rate 18 18 18 Blood Pressure Pulse Oximetry 07/27/18 08:00 Temperature 97.8 F Pulse Rate 58 L Respiratory Rate 18 Blood Pressure 120/64 Pulse Oximetry 100 Intake & Output 07/26/18 07/27/18 07/27/18 18:59 06:59 18:59 Intake Total 1795 / 1795 720 / 720 Output Total 1700 / 1700 900 / 900 Balance 95 / 95 -180 / -180 Weight 67.3 kg Intake: IV 1315 / 1315 NS Inj 1,000 ML @ 42 mls/hr IV. 1315 / 1315 CONT .[id number] [facility] Rx#:[id number] Oral 480 / 480 720 / 720 Output: Urine 1700 / 1700 900 / 900 Other: Date of Last Bowel Movement 07/26/18 # Bowel Movements 1 Narrative: GENERAL: Alert and oriented SKIN: Warm and dry. HEAD: Normocephalic. EYES: No scleral icterus. No injection or drainage. NECK: Supple, trachea midline. No JVD or lymphadenopathy. CARDIOVASCULAR: Regular rate and rhythm without murmurs, gallops, or rubs. RESPIRATORY: Breath sounds equal bilaterally. No accessory muscle use. GASTROINTESTINAL: Abdomen soft, nondistended, tenderness on palpation MUSCULOSKELETAL: No cyanosis, or edema. BACK: Nontender without obvious deformity. No CVA tenderness <Ivory Khanna - Last Filed: 07/27/18 10:29> Assessment and Plan - Assessment (1) SANGITA (acute kidney injury) Code(s): N17.9 - Acute kidney failure, unspecified Status: Acute Plan: Acute kidney injury because of dehydration and the possibility of ATN because of hypotension. Most likely has chronic kidney disease because of hypertensive or renovascular disease only creatinine available was from 4 years ago at 1- 1.4 CT of abdomen and pelvis with no acute findings. The kidneys are mentioned as normal size and shape with no mass or hydronephrosis. He also had an ultrasound of the abdomen and the bladder done which showed both kidneys were normal size at 10.1 cm and 10.3 cm. Slightly enlarged prostate. There was no hydronephrosis or mass. Plan Creatinine continues to improve 1.36, at baseline Plans for discharge home today. Patient instructed to avoid any NSAID use outpatient. Fluids are also encouraged. <Ivory Khanna - Last Filed: 07/27/18 10:29> - Assessment (1) SANGITA (acute kidney injury) Code(s): N17.9 - Acute kidney failure, unspecified Status: Acute Plan: Patient seen and examined, agree with above. Creatinine is 1.3, improving. Continue to encourage oral intake. <Violetta Wan - Last Filed: 07/30/18 19:45>
[2018-07-27] MEDS ORDERED: Polyethylene Glycol 3350 17 GM Packet PO SCH (11:15)
--- NOTE | 2018-07-27 11:21 | P.PNGI ---
Subjective Interval history: Sitting on side of the bed no obvious nausea vomiting or abdominal pain Large formed BM yesterday evening after multiple bowel regimen meds including suppository, stool softener, lactulose <Nallely Bullock - Last Filed: 07/27/18 11:21> Physical Exam Vital signs: Vital Signs 07/26/18 12:00 07/26/18 16:00 07/26/18 20:00 Temperature 98.5 F 97.9 F 98.1 F Pulse Rate 58 L 67 63 Respiratory Rate 18 18 18 Blood Pressure 118/62 145/67 H 129/60 Pulse Oximetry 99 100 99 07/26/18 21:58 07/26/18 22:28 07/27/18 00:00 Temperature 98 F Pulse Rate 63 Respiratory Rate 18 18 18 Blood Pressure 131/61 Pulse Oximetry 98 07/27/18 02:13 07/27/18 02:43 07/27/18 06:47 Temperature Pulse Rate Respiratory Rate 18 18 18 Blood Pressure Pulse Oximetry 07/27/18 08:00 Temperature 97.8 F Pulse Rate 58 L Respiratory Rate 18 Blood Pressure 120/64 Pulse Oximetry 100 Intake & Output 07/26/18 07/27/18 07/27/18 18:59 06:59 18:59 Intake Total 1795 / 1795 720 / 720 Output Total 1700 / 1700 900 / 900 Balance 95 / 95 -180 / -180 Weight 67.3 kg Intake: IV 1315 / 1315 NS Inj 1,000 ML @ 42 mls/hr IV. 1315 / 1315 CONT .[id number] [facility] Rx#:[id number] Oral 480 / 480 720 / 720 Output: Urine 1700 / 1700 900 / 900 Other: Date of Last Bowel Movement 07/26/18 # Bowel Movements 1 - Constitutional no acute distress, thin, cachectic, chronically ill appearing - Routine HEENT Exam Head: Present: normocephalic ENT: Present: mucous membranes moist - Routine Neck Exam Present: supple - Routine Respiratory Exam Present: accessory muscle use (No shortness of breath at rest) - Routine Cardiovascular Exam Present: S1, S2 - Routine Abdominal Exam Present: soft (taut, but no abdominal pain) <Nallely Bullock - Last Filed: 07/27/18 11:21> Vital signs: Vital Signs 07/27/18 12:00 Temperature 97.8 F Pulse Rate 60 Respiratory Rate 18 Blood Pressure 116/56 L Pulse Oximetry 97 Intake & Output 07/27/18 07/28/18 07/28/18 18:59 06:59 18:59 Other: Date of Last Bowel Movement 07/26/18 <Jose Ambrose E - Last Filed: 07/28/18 10:13> Results - Labs CBC & Chem 7: 07/26/18 04:05 07/27/18 03:57 Laboratory Results - last 24 hr 07/26/18 07/27/18 13:55 03:57 Sodium 136 Potassium 4.9 Chloride 102 Carbon Dioxide 26.5 Anion Gap 8 BUN 21 H Creatinine 1.36 H Estimated GFR 64 L Random Glucose 92 Calcium 9.0 Stl C.difficile Tox PCR Cancelled St C. diff Tox Epid 027 Cancelled <Nallely Bullock - Last Filed: 07/27/18 11:21> - Labs CBC & Chem 7: 07/26/18 04:05 07/27/18 03:57 <Jose Ambrose E - Last Filed: 07/28/18 10:13> Assessment and Plan (1) Abdominal pain Status: Acute Code(s): R10.9 - Unspecified abdominal pain (2) Nausea, vomiting and diarrhea Status: Acute Code(s): R11.2 - Nausea with vomiting, unspecified; R19.7 - Diarrhea, unspecified - Plan Mr. Adonay Moreno is a 68-year-old male patient with a history of hypertension GERD and arthritis. This patient presented to the emergency room on 07/21/2018 with complaints of nausea and vomiting with abdominal pain and diarrhea for 3 weeks. Patient denies fever but does endorse having intermittent chills during this time. He denies any recent travel outside of the [place] and denies any known contacts that are sick. Patient reports a 23 pound weight loss over the last 3 weeks. Upon examination patient points to epigastrium area and states that pain is constant, he rates it as a 10/10 and describes it as a nagging pain. He states that the pain is aggravated when he eats "chilli", and pain is somewhat alleviated when he drinks milk or Ensure. Patient states that this pain radiates to his back at times. He reports loose dark stools over the last 2 weeks with last bowel movement being 1 week ago. Last EGD with colonoscopy done in 2002 per patient where 1 polyp was found and he was informed that it was benign. Patient denies difficulty swallowing he denies pain with swallowing but does endorse intermittent periods of heartburn for which he drinks increased amounts of water. Patient denies EtOH use states he does smoke less than 1 pack per day. States he drinks 4-5 cans of soda each day. He endorses using ibuprofen 400-600 mg tablets 4 tabs daily for joint and muscle pain. Patient denies any known family history of gastrointestinal cancers or disorders. This practice has been consulted to evaluate patient's report of dark stools and abdominal pain. Today's lab results reviewed WBC 6.0 RBC 4.02 hemoglobin 11.1 hematocrit 34.0 INR 1.0. BUN and creatinine 29 and 1.48 greatly improved from admission highly likely due to dehydration. Plan for EGD discussed with patient he verbalizes understanding and agreement. N.p.o. status maintained 07/26/18- Patient resting comfortably in bed. Reports mild epigastric discomfort he states is unchanged since admission. Denies nausea or vomiting. Tolerating meals well without difficulty. Denies any noted bleeding. AM labs Hgb 11.0 Hct 33.5. EGD done 07/25/18 findings reveal - The esophagus this appeared to be unremarkable and within normal limits.The stomach there was a moderately sized hiatal hernia there was also patchy erythema in the antrum but no ulcerations and no erosions the rest of the stomach was unremarkable antral biopsies were taken for further evaluation.The duodenum there was patchy erythema in the duodenum of unclear significance this was biopsied otherwise evaluation unremarkable. IMPRESSION:Hiatal hernia Gastritis,Duodenitis. EGD results discussed with patient. Patient advised regarding anti reflux behavior/ diet. Patient advised to avoid aspirin, nsaids, etoh,coffee, carbonated drinks and spicy foods. Pt agrees to call office on discharge to arrange followup appointment and obtain bx results. 07/27 patient is sitting on side of the bed, states large, formed, brown BM yesterday after stool softeners laxatives and a suppository. Nurse notes that was a small amount of rectal bleeding after BM but subsided this is probably due to the size of the stool and hemorrhoids but patient is having no obvious bleeding today. Patient states he usually uses Dulcolax at home. Discussed with him bowel regimen probably daily is going to be needed and suggested he try MiraLAX. He also needs to maintain his hydration with water, and avoid NSAIDs. Patient is status post EGD on 07/25. No obvious nausea vomiting or abdominal pain today. Now that his bowels have moved patient is stable from a GI perspective and can follow-up with us in an outpatient setting. Can sign off from a GI perspective. Last hemoglobin check on 07/26 was 11. Plan Diet as tolerated, encouraged water hydration Monitor labs, hemoglobin transfuse as needed Avoid NSAIDs, carbonated drinks, spicy foods and alcohol MiraLAX ordered for daily and explained to patient bowel regimen as needed when he is home Supportive care Patient was seen per myself and Dr. Ambrose, note was written on his behalf <Nallely Bullock - Last Filed: 07/27/18 11:21> (1) Abdominal pain Status: Acute Code(s): R10.9 - Unspecified abdominal pain (2) Nausea, vomiting and diarrhea Status: Acute Code(s): R11.2 - Nausea with vomiting, unspecified; R19.7 - Diarrhea, unspecified - Plan Patient seen and examined Agree with above Continue with current supportive care Monitor labs Follow-up as an outpatient <Jose Ambrose - Last Filed: 07/28/18 10:13>
[2018-07-27 12:47] VITALS: BP 116/56; PULSE 60; O2SAT 97
[2018-07-27] MEDS ORDERED: Sucralfate 1 GM Tablet PO SCH (17:00)
== END 2018-07-27 14:42 | disposition home or self-care (01) ==
LOC: NEPC 19:54 → NEDA 22:23 → N07 07-22 01:21
PROVIDERS: ADMIT Hospitalist; ATTEND Hospitalist
PROC: PANENDO (2018-07-25 12:57)